=== PATIENT | female | born 1995 | race Caucasian/White ===

== ENCOUNTER 2021-08-02 10:00 | Outpatient (REF) | payer OTHER, SELFPAY ==
--- NOTE | 2021-08-02 10:26 | MHC.AU.P13 ---
Hearing Instrument Maintenance Date of Visit: 08/02/21 Right Ear: Mathematical Engineer: Phonak Model: AUDEO B50-312 Serial Number: [id number] Repair Warranty: Loss and Damage Warranty: USED Battery Size: 312 Forming Yardage Control Operator: 1xS Type of Dome: small closed Type of Wax Guard: Cerustop Dispensed By: [facility] Date of Fittin06/11/2017 Left Ear: Mathematical Engineer: Phonak Model: [place] InnovationsEO B50-312 Serial Number: [id number] Repair Warranty: Loss and Damage Warranty: USED Battery Size: 312 Forming Yardage Control Operator: 1xS Type of Dome: small closed Type of Wax Guard: Cerustop Dispensed By: [facility] Date of Fittin06/11/2017 Follow-Up Summary: Hearing aids cleaned, small closed domes and wax guards replaced - both amplifying clearly. Recommendations: Recommendations: Hearing instrument follow-up or maintenance as needed. Diagnosis Code(s): Primary Diagnosis: H90.3 Bilateral Sensorineural Hearing Loss Signature: Provider: SAHARA Cartwright-
== END 2021-08-02 10:01 | disposition home or self-care (01) ==
LOC: HO.HAP 10:00
PROVIDERS: Visit Provider Internal Medicine
DX: Z13.89 Encounter for screening for other disorder (principal)

== ENCOUNTER 2022-09-29 12:33 | Outpatient (REF) | payer OTHER, SELFPAY ==
--- NOTE | 2022-09-29 14:40 | MHC.AU.HA1 ---
Hearing Aid Evaluation Date of Visit: 09/29/22 Historical Information: Description of Hearing: Mild loss at 250 Hz, dropping to a moderately-severe sensorineural hearing loss at 500-8000 Hz bilaterally with 84 speech inderstanding for the right ear and 72% for the left. Current personal amplification information, if applicable: Binaural Phonak Audeo B 50-312 dispensed in May 2017. Summary: Patient current aids are not providing enough benefit despite reprogramming in past. As patient is visually impaired, she uses a tablet or cell phone to receive auditory information frequently throughout her day so bluetooth capability will be benfecial. She will also require custom earmolds as the domes do not fit properly. New binaural hearing aids are recommended with earmolds to better facilitate communication. Medical clearance from ENT in chart. Hearing Aid Prescription: Based on the individual?s shared listening needs, communication environments, dexterity, desire for connectivity, and personal preferences, the following prescription for amplification has been made: Right ear: Make, Model, Color: Phonak Audeo P 70-13T [place] Brown Battery Size: 13 Offal Trimmer/Slim Tube: 1 P Type of Earmold/Dome/CShell/SlimTip: Phonak Canal Lock C-Shell Left ear:Left ear prescription to be same as Right Hearing Aid above: Make, Model, Color: Phonak Audeo P 70-13T [place] Brown Battery Size: 13 Offal Trimmer/Slim Tube: 1 P Type of Earmold/Dome/CShell/SlimTip: Phonak Canal Lock C-Shell Plan of Care: Patient wishes to purchase hearing aids as prescribed Action Taken/Action Needed: Earmold Impressions Taken, Hearing Instrument Fitting to be scheduled when materials arrive Primary Diagnosis: H90.3 Bilateral Sensorineural Hearing Loss Signature:Provider: Catina Le, [facility]
== END 2022-09-29 12:34 | disposition home or self-care (01) ==
LOC: HO.HAP 12:33
PROVIDERS: Visit Provider Otolaryngology
DX: Z46.1 Encounter for fitting and adjustment of hearing aid (principal); H90.3 Sensorineural hearing loss, bilateral
CPT/HCPCS: 92591; V5275

== ENCOUNTER 2022-10-20 09:39 | Outpatient (REF) | payer OTHER, SELFPAY ==
--- NOTE | 2022-10-20 10:50 | MHC.AU.NMH ---
Hearing Aid Delivery Receipt: Third Alliance Party Payor [facility] type [facility] Other: Date of Fitting: End of Adjustment Period: 30 days from date of fitting Social Work Assistant: Right Ear: Left Ear: Make, Model, Serial Number and Color: Phonak Audeo P 70-13T Britany Richardson Serial #[id number] Make, Model, Serial Number and Color: Phonak Audeo P 70-13T Britany Richardson Serial #[id number] Crib Tender/Slim Tube: 1 P Crib Tender/Slim Tube: 1 P Earmold/Dome/CShell/SlimTip: Phonak Canal Lock C-Shell Earmold/Dome/CShell/SlimTip: Phonak Canal Lock C-Shell Type of Wax Guard: Cerustop Type of Wax Guard: Cerustop Battery Size: 13 Battery Size: 13 Boom Stick Worker Repair Warranty: 01/07/2026 Boom Stick Worker Repair Warranty: 01/07/2026 Boom Stick Worker Loss and Damage Warranty: USED Boom Stick Worker Loss and Damage Warranty: [facility] Service Agreement ends one year from date of fitting on? [facility] Service Agreement ends one year from date of fitting on Accessories/Assistive Technology: Following the expiration of [facility]s service agreement, charges for items and services listed above are billed at the usual and customary rate. *If coverage by third libertarian payor exists, medically necessary modifications, repairs, etc. will be billed to said third libertarian payor. If there is no third libertarian payor eligibility beyond the service agreement or ear muff assembler warranty periods, items will be billed per usual and customary rates and payment is expected at the time of service. Hearing aids that are lost or damaged beyond repair cannot be returned for credit, and the airframe technician is liable for the full purchase sampson. My signature below acknowledges that I have read and understand this hearing aid contract and have received the goods and services out lined above. ?Date? Home Address: ? PATIENT STICKER ? This hearing aid will not restore normal hearing nor will it prevent further hearing loss. The sale of a hearing aid is restricted to those individuals who have obtained a medical evaluation from a licensed physician or government services professional. A fully informed adult whose yazidi or personal beliefs preclude consultation with a physician may waive the requirement of a medical evaluation. The exercise of such a waiver is not in your best health interest and its use is strongly discouraged. It is also required that a person under the age of eighteen years obtain an evaluation by an collections attorney in addition to the medical evaluation before a hearing aid can be sold to such person. David Yanez,Title XV,Chapter 93:74
--- NOTE | 2022-10-20 10:57 | MHC.AU.NMH ---
Hearing Aid Delivery Receipt: Third Green Party Payor [facility] type [facility] Other: Date of Fittin10/20/2022 End of Adjustment Period: 30 days from date of fitting 11/17/2022 Stuntman: [employer] #[id number] Right Ear: Left Ear: Make, Model, Serial Number and Color: Phonak Audeo P 70-13T [place] Brown Serial #[id number] Make, Model, Serial Number and Color: Phonak Audeo P 70-13T [place] Brown Serial #[id number] Die Storage Worker/Slim Tube: 1 P Die Storage Worker/Slim Tube: 1 P Earmold/Dome/CShell/SlimTip: Phonak Canal Lock C-Shell #[id number] Warranty 01/06/2023 Earmold/Dome/CShell/SlimTip: Phonak Canal Lock C-Shell #[id number] Warranty 01/06/2023 Type of Wax Guard: Cerustop Type of Wax Guard: Cerustop Battery Size: 13 Battery Size: 13 Classification And Treatment Director Repair Warranty: 01/07/2026 Classification And Treatment Director Repair Warranty: 01/07/2026 Classification And Treatment Director Loss and Damage Warranty: 01/07/2026 Classification And Treatment Director Loss and Damage Warranty: 01/07/2026 [facility] Service Agreement ends one year from date of fitting on? 10/20/2023 [facility] Service Agreement ends one year from date of fitting on 10/20/2023 Accessories/Assistive Technology: Following the expiration of [facility]s service agreement, charges for items and services listed above are billed at the usual and customary rate. *If coverage by third democrat payor exists, medically necessary modifications, repairs, etc. will be billed to said third democrat payor. If there is no third democrat payor eligibility beyond the service agreement or steersman warranty periods, items will be billed per usual and customary rates and payment is expected at the time of service. Hearing aids that are lost or damaged beyond repair cannot be returned for credit, and the badger distiller operator is liable for the full purchase sampson. My signature below acknowledges that I have read and understand this hearing aid contract and have received the goods and services out lined above. ?Date? Home Address: ?[address] [address]? PATIENT STICKER ? This hearing aid will not restore normal hearing nor will it prevent further hearing loss. The sale of a hearing aid is restricted to those individuals who have obtained a medical evaluation from a licensed physician or wharf tally clerk. A fully informed adult whose spiritism or personal beliefs preclude consultation with a physician may waive the requirement of a medical evaluation. The exercise of such a waiver is not in your best health interest and its use is strongly discouraged. It is also required that a person under the age of eighteen years obtain an evaluation by an stapler hand in addition to the medical evaluation before a hearing aid can be sold to such person. David Yanez,Title XV,Chapter 93:74
== END 2022-10-20 09:40 | disposition home or self-care (01) ==
LOC: HO.HAP 09:39
PROVIDERS: Visit Provider Internal Medicine
DX: Z46.1 Encounter for fitting and adjustment of hearing aid (principal); H90.3 Sensorineural hearing loss, bilateral
CPT/HCPCS: V5011; V5020; V5160; V5261; V5264; V5266

== ENCOUNTER 2022-11-27 14:48 | Outpatient (REF) | payer OTHER, SELFPAY | END 2022-11-27 14:49 | disposition home or self-care (01) | LOC: HO.HAP 14:48 | PROVIDERS: Visit Provider Internal Medicine | DX: Z46.1 Encounter for fitting and adjustment of hearing aid (principal); H90.3 Sensorineural hearing loss, bilateral | CPT/HCPCS: V5266 ==

== ENCOUNTER 2022-12-27 13:29 | Outpatient (REF) | payer OTHER, SELFPAY | END 2022-12-27 13:30 | disposition home or self-care (01) | LOC: HO.HAP 13:29 | PROVIDERS: Visit Provider Internal Medicine | DX: Z46.1 Encounter for fitting and adjustment of hearing aid (principal); H90.3 Sensorineural hearing loss, bilateral | CPT/HCPCS: V5266 ==

== ENCOUNTER 2023-03-02 13:31 | Outpatient (REF) | payer OTHER, SELFPAY | END 2023-03-02 13:32 | disposition home or self-care (01) | LOC: HO.HAP 13:31 | PROVIDERS: Visit Provider Internal Medicine | DX: Z46.1 Encounter for fitting and adjustment of hearing aid (principal); H90.3 Sensorineural hearing loss, bilateral | CPT/HCPCS: V5266 ==

== ENCOUNTER 2023-04-04 15:51 | Outpatient (REF) | payer OTHER, SELFPAY | END 2023-04-04 15:52 | disposition home or self-care (01) | LOC: HO.HAP 15:51 | PROVIDERS: Visit Provider Internal Medicine | DX: Z46.1 Encounter for fitting and adjustment of hearing aid (principal); H90.3 Sensorineural hearing loss, bilateral | CPT/HCPCS: V5266 ==

== ENCOUNTER 2023-06-01 16:01 | Outpatient (REF) | payer OTHER, SELFPAY | END 2023-06-01 16:02 | disposition home or self-care (01) | LOC: HO.HAP 16:01 | PROVIDERS: Visit Provider Internal Medicine | DX: Z46.1 Encounter for fitting and adjustment of hearing aid (principal); H90.3 Sensorineural hearing loss, bilateral | CPT/HCPCS: V5266 ==

== ENCOUNTER 2023-07-13 12:48 | Outpatient (REF) | payer OTHER, SELFPAY | END 2023-07-13 12:49 | disposition home or self-care (01) | LOC: HO.HAP 12:48 | PROVIDERS: Visit Provider Internal Medicine | DX: Z46.1 Encounter for fitting and adjustment of hearing aid (principal); H90.3 Sensorineural hearing loss, bilateral | CPT/HCPCS: V5266 ==

== ENCOUNTER 2023-08-16 15:16 | Outpatient (REF) | payer OTHER, SELFPAY | END 2023-08-16 15:17 | disposition home or self-care (01) | LOC: HO.HAP 15:16 | PROVIDERS: Visit Provider Internal Medicine | DX: Z46.1 Encounter for fitting and adjustment of hearing aid (principal); H90.3 Sensorineural hearing loss, bilateral | CPT/HCPCS: V5266 ==

== ENCOUNTER 2023-10-10 15:47 | Outpatient (REF) | payer OTHER, SELFPAY | END 2023-10-10 15:48 | disposition home or self-care (01) | LOC: HO.HAP 15:47 | PROVIDERS: Visit Provider Internal Medicine | DX: Z46.1 Encounter for fitting and adjustment of hearing aid (principal); H90.3 Sensorineural hearing loss, bilateral | CPT/HCPCS: V5266 ==

== ENCOUNTER 2023-10-11 10:01 | Outpatient (REF) | payer OTHER, SELFPAY ==
--- NOTE | 2023-10-11 10:47 | MHC.AU.HA3 ---
Hearing Instrument Follow-Up- Binaural Date of Visit: 10/11/23 Right Ear: Make, Model, Color, Serial Number: Phonak Bessieeo P 70-13T Britany Richardson Serial #[id number] Mussel Opener Repair Warranty: 01/07/2026 Mussel Opener Loss and Damage Warranty: 01/07/2026 [employer] [facility] [employer] [facility] Service Plan: 10/20/2023 Battery Size: 13 Sap Project Manager/Slim Tube: 1 P Earmold/Dome/CShell/SlimTip:Phonak Canal Lock C-Shell #[id number] Remake warranty 01/06/2023 Type of Wax Guard: Cerustop Dispensed By: [facility] Date of Fittin06/11/2017 Left Ear: Make, Model, Color, Serial Number: Phonak Bessieeo P 70-13T Britany Richardson Serial #[id number] Mussel Opener Repair Warranty: 01/07/2026 Mussel Opener Loss and Damage Warranty: 01/07/2026 [employer] Service Plan: 10/20/2023 Battery Size: 13 Sap Project Manager/Slim Tube: 1 P Earmold/Dome/CShell/SlimTip: Phonak Canal Lock C-Shell #[id number] Remake warranty 01/06/2023 Type of Wax Guard: Cerustop Dispensed By: [facility] Date of Fittin06/11/2017 Follow-Up Summary: Reports streaming cuts out at times. Cleaned and checked aids and molds. Listening check positive. Checked for firmware- it is UTD. Switched from adaptive to fixed bandwidth for bluetooth, this can be a more stable connection. Forgot and repaired with phone. Recommendations: Recommendations: Patient will call if problems persist. Recommendations (Other): Aids will have to go to [employer] for connection issues if problem persists. Diagnosis Code(s): Primary Diagnosis: H90.3 Bilateral Sensorineural Hearing Loss Signature: Provider: Catina Gallardo, [facility]
== END 2023-10-11 10:02 | disposition home or self-care (01) ==
LOC: HO.HAP 10:01
PROVIDERS: Visit Provider Internal Medicine
DX: Z13.89 Encounter for screening for other disorder (principal)

== ENCOUNTER 2023-11-28 15:16 | Outpatient (REF) | payer OTHER, SELFPAY | END 2023-11-28 15:17 | disposition home or self-care (01) | LOC: HO.HAP 15:16 | PROVIDERS: Visit Provider Internal Medicine | DX: Z46.1 Encounter for fitting and adjustment of hearing aid (principal); H90.3 Sensorineural hearing loss, bilateral | CPT/HCPCS: V5266 ==

== ENCOUNTER 2024-02-04 15:34 | Outpatient (REF) | payer OTHER, SELFPAY | END 2024-02-04 15:35 | disposition home or self-care (01) | LOC: HO.HAP 15:34 | PROVIDERS: Visit Provider Internal Medicine | DX: Z46.1 Encounter for fitting and adjustment of hearing aid (principal); H90.3 Sensorineural hearing loss, bilateral | CPT/HCPCS: V5266 ==

== ENCOUNTER 2024-07-02 13:49 | Outpatient (REF) | payer OTHER, SELFPAY | END 2024-07-02 13:50 | disposition home or self-care (01) | LOC: HO.HAP 13:49 | PROVIDERS: Visit Provider Internal Medicine | DX: Z46.1 Encounter for fitting and adjustment of hearing aid (principal); H90.3 Sensorineural hearing loss, bilateral | CPT/HCPCS: V5266 ==

== ENCOUNTER 2024-08-18 15:24 | Outpatient (REF) | payer OTHER, SELFPAY | END 2024-08-18 15:25 | disposition home or self-care (01) | LOC: HO.HAP 15:24 | PROVIDERS: Visit Provider Internal Medicine | DX: Z46.1 Encounter for fitting and adjustment of hearing aid (principal); H90.3 Sensorineural hearing loss, bilateral | CPT/HCPCS: V5266 ==

== ENCOUNTER 2024-10-28 14:32 | Outpatient (REF) | payer OTHER, SELFPAY ==
--- OUTSIDE RECORDS SUMMARY | 2024-10-28 18:22 | XMS_ITS | Clinical Summary ---
Author Organization [facility] Address [address] [place] [address] [address] [place] [address] Care Team Providers Care Rental Car Ferry Driver Name Role Phone Unavailable Primary Care Provider Unavailabl e Allergies Active Allergy Reactions Criticality Noted Date Comments Bee Venom Unknown 03/26/2024 [place] Extract Hives 10/17/2019 Sulfamethoxazole Hives 10/17/2019 Medications Ventolin HFA 108 (90 Base) MCG/ACT inhaler INHALE 2 PUFFS INTO THE LUNGS EVERY 4 HOURS NEEDED FOR COUGH OR WHEEZING. 3 Active EPINEPHrine (Epipen) 0.3 MG/0.3ML injection syringe INJECT 0.3 MG INTO THE MUSCLE NEEDED FOR ANAPHYLACTIC REACTION 3 Active mirtazapine (Remeron) 15 MG tablet Take 15 mg by mouth at bedtime. 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 Pain, dental 03/26/2024 Social History Tobacco Use Types Packs/Day Years Used Date Smoking Tobacco: Never Smokeless Tobacco: Never Tobacco Cessation:Counseling Given: Not Answered Alcohol Use Standard Drinks/Week Comments Never 0 (1 standard drink = 0.6 oz pur e alcohol) Comments Unknown Sex and Gender Information Value Date Recorded Sex Assigned at Female 06/26/2022 10:15 AM EDT Legal Sex Female 10:15 AM EDT Gender Identity Female 06/26/2022 10:15 AM EDT Sexual Orientation Straight 06/26/2022 10 :15 AM EDT Last Filed Vital Signs Vital Sign Reading Time Taken Comments Blood Pressure 118/82 05/30/2024 1:24 PM EDT Pulse 68 05/30/2024 1:24 PM EDT Temperature - - Respiratory Rate - - Oxygen Saturation - - Inhaled Oxygen Concentration - - Weight - - Height - - Body Mass Index - - Plan of Treatment Upcoming Encounters Date Type Department Care Team (Late st Contact Info) Description 11/24/2024 3:00 PM EDT Office Visit [facility]ULT [facility] [address] [place] [address] Tosha Pulido Health Maintenance Due Date Last Done Comments Depression Screening 1993 HIV Screening 1993 SDOH Screening 1993 Alcohol/Substance Use Screening 2005 Family Planning (PISQ) 2008 Hepatitis C Screening 12/08/2011 Pap Smear 2014 Pneumococcal Vaccine: Pediatrics (0 to 5 Years) and At-Risk Patients (6 to 49) Years) (2 of 2 - PCV) 04/15/2016 04/15/2015 Cervical Cancer Screening 12/08/2023 HPV/Cotest 12/08/2023 COVID-19 Vaccine ( season) 2024 01/28/2021, 12/31/2020 Influenza Vaccine (#1) 2024 9, 08/29/2013, 05/22/2008, Additional history exists Dental Oral Exam 08/09/2024 02/07/2024, 11/05/2019 Dental Prophylaxis 08/09/2024 02/07/2024 Dental X-Ray: Bitewings 03/27/2025 03/26/2024, 02/06 Tobacco Screening 05/30/2025 05/30/2024 Dental X-Ray: Full Mouth 03/27/2027 024, 02/07/2024, 11/05/2019 DTaP/Tdap/Td Vaccines (8 - Td or Tdap) 10/22/2028 10/22/2018, 02/05/2007, 04/05/1999, Additional history exists Zoster Vaccines (1 of 2) 12/08/2043 RSV Patients and Patients Aged 60 years or older (1 - 1-dose 75+ series) 2068 HIB Vaccines Completed 05/28/1995, 09/1994, 05/23/1994, Additional history exists Hepatitis B Vaccines Completed 04/05/1999, 06/17/1996, 12/24/1995 IPV Vaccines Completed 04/05/1999, 09/1994, 05/28/1995, Additional history exists HPV Vaccines Completed 03/15/2009, 10/25, 09/10/2008 Meningococcal Vaccine Completed 11/12/2012, 008 Hepatitis A Vaccines Aged Out No long er eligible based on patient's age to complete this topic RSV under 20 months Aged Out No longe r eligible based on patient's age to complete this topic Rotavirus Vaccines Aged Out No longer eligible based on patient's age to complete this topic Procedures Procedure Name Priority Date/Time Associated Diagnosis Comments INTRAORAL - COMPLETE SERIES OF RADIOGRAPHIC IMAGES Routine 03/26/2024 9:30 AM EDT PROPHYLAXIS - ADULT Routine 02/07/2024 1 :00 PM EDT Dental plaque PERIODIC ORAL EVALUATION - ESTABLISHED PATIENT Routine 02/07/2024 1:00 PM EDT Dental plaque Encounter for dental examination Oligodontia from Last 3 Months or Most Recently Relevant to Health Maintenance Insurance [facility] MEDICAID STAND ADULT DENTAL - [facility] MEDICAID DDS ADULT
--- OUTSIDE RECORDS SUMMARY | 2024-10-28 18:22 | XMS_ITS | Clinical Summary ---
Author Organization [facility] [address] [facility] [address] Address [address] [place] [address] Phone Care Team Providers Care Core Winder Machine Operator Name Role Phone Pamela Hendrix MD Primary Care Provider Allergies Active Allergy Reactions Criticality Noted Date Comments Sulfamethoxazole-Trimethoprim Hives High 2013 Medications albuterol HFA (PROAIR HFA ; PROVENTIL HFA ; VENTOLIN HFA) 90 mcg/actuation inhaler Inhale 2 puffs by mouth every 4 (four) hours if needed for wheezing (cough). 8.5 g 4 Active EPINEPHrine (EpiPen 2-Morgan) 0.3 mg/0.3 mL injection Inject 0.3 mg into the muscle as needed for Other (anaphylactic reaction). Fill with whichever brand is covered by insurance. 4 Active fluticasone propionate (FLONASE) 50 mcg/actuation nasal spray 2 Sprays by Nasal route daily. 8 Active LORazepam (ATIVAN) 0.5 mg tablet Take 0.5 mg by mouth every 6 hours as needed. Active mirtazapine (REMERON) 15 mg tablet Take 15 mg by mouth at bedtime. Active valACYclovir (VALTREX) 500 mg tablet Take 1 tablet (500 mg total) by mouth 2 (two) times a day for 5 days. 10 each 5 10/06/19 25 Active Problems Problem Noted Date Diagnosed Date Bilateral hearing loss 07/28/2024 Hyperlipidemia 07/28/2024 Exotropia of right eye 08/13/2014 Depression 08/29/2013 Learning difficulty 08/29/2013 Legally blind 08/29/2013 Mild intermittent asthma 08/29/2013 Retinal detachment 08/29/2013 Scoliosis 08/29/2013 Encounters Date Type Department Care Team Description 10/01/2024 9:00 AM EST Office Visit [facility] [place] [address] [place] [address] Glenis Walker NP Herpes simplex (Primary Dx) 10/01/2024 Telephone Adult Medicine - [place] [address] [place] [address] Pamela Hendrix MD Mouth Lesions 09/30/2024 Nurse Triage Adult Medicine - [place] [address] [place] [address] Pamela Hendrix MD Mouth Lesions from Last 3 Months Immunizations Name Administration Dates Next Due DTaP (Infanrix) 6wks to less than 7yo ,05/28/1995,11/13/1994,05/23,02/06/1994 [id number] (Pentacel) 2mo to less than 5yo 05/28/1995,05/23/1994,02/06/1994 HPV, Quadrivalent 03/15/2009,11/10/2008,09/10/19 09 Hepatitis B Pediatric (Enger ix B; Recombivax HB) to less than 20 yo 04/05/1999,06/17/1996,12/24/1995 Influenza Quadravalent, MDCK , 0.5ml, preservative free (Flucelvax) 6mo and older 10/22/2018 Influenza trivalent, with pr eservative (Fluzone; Afluria) 6mo and older 08/29/2013,05/22/2008 MMR, measles mumps and rubel la Live (Priorix; M-M-R II) 12mo and older 04/05/1999,05/28/1995 Meningococcal MCV4P 11/12/2012,05/22/2008 OPV 04/05/1999, 5,05/23/1994,02/06 Pneumococcal polysaccharide 23 valent (Pneumovax 23) 2yo and older 04/15/2015 Td Tetanus diptheria (Tdvax) 7yo and older 10/22/2018 Tdap Tetanus diptheria acell ular pertussis (Boostrix; Adacel) 7yo and older 02/05/2007 Varicella live (Varivax) 12m o and older 02/12/2007 Surgical History Surgery Date Site/Laterality Comments OTHER SURGICAL HISTORY 05/2013 PROCEDURE: REPAIR DETACHED RETINA; COMMENT: right EYE SURGERY 04/2014 PROCEDURE: HISTORICAL EYE SURGERY Medical History Medical History Date Comments Asthma DX:Asthma Anxiety and depression DX:Anxiet y and depression Learning difficulty 08/29/2013 DX:Learning difficulty Scoliosis 08/29/2013 DX:Scoliosis Deliberate self-cutting 08/29/2013 DX:Delib erate self-cutting; COMMENT: Last May 2012 Legally blind 08/29/2013 DX:Legally blind Retinal detachment 08/29/2013 DX:Retinal de tachment Bilateral hearing loss DX:Bilate ral hearing loss Hyperlipidemia DX:Hyperlipidemi a Family History Medical History Relation Name Comments ADD / ADHD Brother No Known Problems Father Anemia Mother Other: breast cancer Paternal Grandmother older age Asthma Sister Colon cancer Neg Hx Ovarian cancer Neg Hx Pancreatic cancer Neg Hx Prostate cancer Neg Hx Uterine cancer Neg Hx Relation Name Status Comments Brother Alive Father Alive Maternal Grandfather heart a ttack Maternal Grandmother DM Mother Alive Paternal Grandfather unknown status Paternal Grandmother Sister Alive Social History Tobacco Use Types Packs/Day Years Used Date Smoking Tobacco: Never Smokeless Tobacco: Never Alcohol Use Standard Drinks/Week Comments Yes 0 (1 standard drink = 0.6 oz pur e alcohol) Comments Unknown Sex and Gender Information Value Date Recorded Sex Assigned at Not on file Legal Sex Female 11:51 PM EST Gender Identity Not on file Sexual Orientation Not on file Obstetrics History Last Filed Vital Signs Vital Sign Reading Time Taken Comments Blood Pressure 112/72 10/01/2024 9:11 AM EST Pulse 88 10/01/2024 9:11 AM EST Temperature 36.6 ??C (97.8 ??F) 10/01/2024 9:11 AM ES T Respiratory Rate - - Oxygen Saturation 98% 10/01/2024 9:11 AM EST Inhaled Oxygen Concentration - - Weight 85.7 kg (189 lb) 10/22/2023 2:56 PM EST Height 165.1 cm (5' 5 ) 10/22/2023 2:56 PM EST Body Mass Index 31.45 10/22/2023 2:56 PM EST Plan of Treatment Upcoming Encounters Date Type Department Care Team (Late st Contact Info) Description 11/05/2024 1:15 PM EDT Office Visit Obstetrics and Gynecology - [address] [phone] Tra Good CNM [address] [place] [address] 12/18/2024 3:30 PM EDT Office Visit Adult Medicine - [place] [address] [place] [phone] Pamela Hendrix MD [address] [place] [address] Health Maintenance Due Date Last Done Comments Pneumococcal Vaccine: Pediatrics (0 to 5 Years) and At-Risk Patients (6 to 64 Years) (2 of 2 - PCV) 04/15/2016 04/15/2015 Depression Screening 09/30/2023 Social Influencers of Health Screening 09/30/2023 COVID-19 Vaccine ( season) 2024 01/28/2021, 12/31/2020 Influenza Vaccine (#1) 2024 9, 08/29/2013, 05/22/2008 Cervical Cancer Screening: HPV 05/11/2028 05/11/2023 Cholesterol Screening (Lipid Panel) 10/22/2028 10/22/2023, 10/22/2023 DTaP,Tdap,and Td Vaccines (8 - Td or Tdap) 10/22/2028 10/22/2018, 02/05/2007, 04/05/1999, Additional history exists HIB Vaccines Completed 05/28/1995, 09/1994, 05/23/1994, Additional history exists Hepatitis B Vaccines Completed 04/05/1999, 06/17/1996, 12/24/1995 IPV Vaccines Completed 04/05/1999, 09/1994, 05/28/1995, Additional history exists MMR Vaccines Completed 04/05/1999, 05/28/1995 Varicella Vaccines Aged Out 02/12/2007 No longer eligible based on patient's age to complete this topic HPV Vaccines Completed 03/15/2009, 10/25, 09/10/2008 Meningococcal ACWY Vaccine Completed 11/12/2012, HIV Screening Completed 10/22/2023, 10/22/2023 Hepatitis C Screening Completed 10/22/2023 Hepatitis A Vaccines Aged Out No long er eligible based on patient's age to complete this topic Meningococcal B Vacine Aged Out No lo nger eligible based on patient's age to complete this topic RSV Immunization Patients Under 20 months Aged Out No longer eligible based on patient's age to complete this topic Procedures Procedure Name Priority Date/Time Associated Diagnosis Comments HEPATITIS C SCREENING Routine 10/22/2023 HIV SCREENING Routine 10/22/2023 LIPID PANEL Routine 10/22/2023 HPV Routine 05/11/2023 from Last 3 Months or Most Recently Relevant to Health Maintenance Results * HIV Screening (10/22/2023) [facility] HIV Screening Abstracted [facility] Provider HEALTH MAINTENANCE Final Result * Hepatitis C Screening (10/22/2023) [facility] Hepatitis C Screening Abstracted [facility] Provider HEALTH MAINTENANCE Final Result * (ABNORMAL) Lipid panel (10/22/2023) [facility] LDL/HDL Ratio 5(A) 0 - 4 Triglycerides 163(A) 0 - 150 mg/dL Cholesterol 205(A) 0 - 200 mg/dL HDL 41 >=40 mg/dL LDL Cholesterol 132(A) 0 - 100 mg/dL Blood Venous blood specimen / Unknown Result [facility] Provider LAB BLOOD ORDERABLES Page l Result * Cervical Cancer Screening: HPV (05/11/2023) [facility] Cervical Cancer Screening: HPV No Interpretation , Abstracted [facility] Provider HEALTH MAINTENANCE Final Result from Last 3 Months or Most Recently Relevant to Health Maintenance Insurance [facility] [place] [address] Care Teams Core Winder Machine Operator Relationship Specialty Start Date End Date Pamela Hendrix MD [address] [place] [address] [phone] PCP - General 06/01/23
--- OUTSIDE RECORDS SUMMARY | 2024-10-28 18:22 | XMS_ITS | Encounter Summary ---
Author Organization [facility] Address [address] [place] [address] Care Team Providers Care Elevator Supervisor Name Role Phone Pamela Hendrix MD Primary Care Provider Reason for Visit * Reason Comments Oral Pain Encounter Details Date Type Department Care Team ([facility] st Contact Info) Description 10/01/2024 9:00 AM EST Office Visit Walk-In Clinic - [place] [id number] [place] [phone] Glenis Walker NP [address] [place] [address] Herpes simplex (Primary Dx) Social History Tobacco Use Types Packs/Day Years Used Date Smoking Tobacco: Never Smokeless Tobacco: Never Alcohol Use Standard Drinks/Week Comments Yes 0 (1 standard drink = 0.6 oz pur e alcohol) Comments Unknown Sex and Gender Information Value Date Recorded Sex Assigned at Not on file Legal Sex Female 11:51 PM EST Gender Identity Not on file Sexual Orientation Not on file documented as of this encounter Last Filed Vital Signs Vital Sign Reading Time Taken Comments Blood Pressure 112/72 10/01/2024 9:11 AM EST Pulse 88 10/01/2024 9:11 AM EST Temperature 36.6 ??C (97.8 ??F) 10/01/2024 9:11 AM ES T Respiratory Rate - - Oxygen Saturation 98% 10/01/2024 9:11 AM EST Inhaled Oxygen Concentration - - Weight - - Height - - Body Mass Index - - documented in this encounter Ordered Prescriptions Prescription Sig Dispense Quantity Refills Last Filled Start Date End Date valACYclovir (VALTREX) 500 mg tablet Take 1 tablet (500 mg total) by mouth 2 (two) times a day for 5 days. 10 each 10/01/2024 10/06/2024 documented in this encounter Progress Notes * Glenis Walker NP - 10/01/2024 9:00 AM EST CHIEF COMPLAINT: Oral Pain HPI: Chacho Proctor is a 28 y.o. old female with recent upper respiratory infection signs and symptoms presents today with oral lesions ROS: Remainder of the 12 point review of symptoms unremarkable except for those idenitified in the HPI. PAST MEDICAL HISTORY: Patient Active Problem List Diagnosis Date Noted Bilateral hearing loss 07/28/2024 Hyperlipidemia 07/28/2024 Exotropia of right eye 08/13/2014 Depression 08/29/2013 Learning difficulty 08/29/2013 Legally blind 08/29/2013 Mild intermittent asthma 08/29/2013 Retinal detachment 08/29/2013 Scoliosis 08/29/2013 Past Surgical History: Procedure Laterality Date EYE SURGERY 04/2014 PROCEDURE: HISTORICAL EYE SURGERY OTHER SURGICAL HISTORY 05/2013 PROCEDURE: REPAIR DETACHED RETINA; COMMENT: right SOCIAL HISTORY: Social History Tobacco Use Smoking status: Never Smokeless tobacco: Never Substance Use Topics Alcohol use: Yes FAMILY HISTORY: Family History Problem Relation Name Age of Onset Anemia Mother No Known Problems Father Asthma Sister ADD / ADHD Brother Other (Other: breast cancer) Paternal Grandmother older age Colon cancer Neg Hx Pancreatic cancer Neg Hx Ovarian cancer Neg Hx Uterine cancer Neg Hx Prostate cancer Neg Hx Family Status Relation Name Status Mother Alive Father Alive Sister Alive Brother Alive PGM Neg Hx (Not Specified) MGM DM MGF heart attack PGF (Not Specified) unknown status No partnership data on file MEDICATIONS DISCONTINUED/REORDERED: There are no discontinued medications. ACTIVE MEDICATIONS: No outpatient medications have been marked as taking for the 10/01/24 encounter (Office Visit) with Glenis Walker NP. ALLERGIES: Allergies Allergen Reactions Sulfamethoxazole-Trimethoprim Hives PHYSICAL EXAM: Vitals: 10/01/24 0911 BP: 112/72 Pulse: 88 Temp: 36.6 ??C (97.8 ??F) TempSrc: Oral SpO2: 98% CONSTITUTIONAL: alert, calm, cooperative, in no acute distress HEAD: normocephalic, atraumatic EYES: pupils equal, round, reactive to direct and consensual light, accommodation reflex present, extraocular movement intact (EOMI), sclera non-icteric EARS: auditory canal clear, tympanic membrane intact and clear with anterior light reflex, no air-fluid levels bilaterally NOSE: septum intact, no lesions, no discharge ORAL CAVITY: mucosa moist, gums normal, palate normal, tongue midline several red herpetic sores lower buccal mucosa THROAT: no erythema, no exudate, pharynx normal, tonsils normal, uvula midline NECK/THYROID: neck range of motion grossly intact LYMPH: no cervical or supraclavicular lymphadenopathy SKIN: warm and dry HEART: S1, S2 normal, regular rate and rhythm, no murmurs, rubs, gallops LUNGS: clear to auscultation bilaterally, no wheezes, rales, rhonchi PSYCH: mood/affect full range, speech clear, good eye contact, cooperative with exam LABS/IMAGING: IMPRESSION: Herpes simplex PLAN: The patient's PMH, problem list and medications were reviewed in reference to the above diagnosis/diagnoses. Valtrex sent to pharmacy Salt water gargles Maintain adequate hydration Advised to follow up with PCP if symptoms do not improve. Advised to follow up with UC or PCP immediately for new or worsening symptoms. Educated on red flags symptoms. Advised to go to the ER or call 911 for these symptoms. Patient understands the plan. Patient verbalizes agreement with the plan. No orders of the defined types were placed in this encounter. Glenis Walker NP on 10/01/2024 at 9:13 AM EST Today's documentation was made using voice recognition software. This note may contain grammatical errors secondary to this software. documented in this encounter Plan of Treatment Upcoming Encounters Date Type Department Care Team (Late st Contact Info) Description 11/05/2024 1:15 PM EDT Office Visit Obstetrics and Gynecology - [address] [phone] Tra Good CNM [address] [place] [address] 12/18/2024 3:30 PM EDT Office Visit Adult Medicine - [place] [address] [place] [phone] Pamela Hendrix MD [address] [place] [address] documented as of this encounter Visit Diagnoses Diagnosis Herpes simplex- Primary Herpes simplex without mention of complication documented in this encounter Care Teams Elevator Supervisor Relationship Specialty Start Date End Date Pamela Hendrix MD [address] [place] [address] PCP - General 06/01/23 documented as of this encounter
--- OUTSIDE RECORDS SUMMARY | 2024-10-28 18:22 | XMS_ITS | Encounter Summary ---
Author Organization [employer] [facility] Address [address] [place] [address] Care Team Providers Care Change Number Operator Name Role Phone Pamela Hendrix MD Primary Care Provider Reason for Visit * Reason Onset Date Comments Mouth Lesions 10/01/2024 Encounter Details Date Type Department Care Team ([facility] st Contact Info) Description 10/01/2024 Telephone Adult Medicine - [address] [phone] Pamela Hendrix MD [address] [place] [address] Mouth Lesions Social History Tobacco Use Types Packs/Day Years [...] on file documented as of this encounter Progress Notes * Ian Cheung RN - 10/01/2024 10:10 AM EST Discussed dx and treatment that was prescribed by mehreen bahena today * Jorge Hoyos - 10/01/2024 10:01 AM EST Patient call requires triage: Symptoms patient is presenting: pt had an appt with our Urgent Care today, states no tests we're ordered and nothing was told about what patient has on face, would like a call back from a nurse How long has patient had these symptoms?: For ALL patients calling to schedule any appointment (routine, sick visit, follow up, consult, etc.) in the outpatient setting please ask the following questions: Do you have fever of higher than 101, sore throat with difficulty swallowing or severe shortness ofbreath? no If YES to any of these above symptoms, send a message to triage and do not book. Red dot. If no, an audio or video visit should be booked. Have you had close contact with someone with Coronavirus in the last 14 days? no Have you traveled abroad? no Have you traveled recently to another state outside of [place], [place], [place], [place], [place], [place], [place]? no o If yes, did you quarantine for 14 days or have a negative covid test? no If yes to any of the above, patient is not to be scheduled in office until after 14 day quarantine or negative covid test. If pain or injury related was it due to an accident at work or from a motor vehicle accident? If yes, date of accident/Injury: No If yes, gather 3rd democrat insurance information [employer] Party Information: PCP: Pamela Hendrix MD Payor: [employer] PLAN / Plan: [employer] MEDICAID / Product Type: *No Product type* / documented in this encounter Plan of Treatment Upcoming Encounters Date Type Department Care Team (Late st Contact Info) Description 11/05/2024 1:15 PM EDT Office Visit Obstetrics and Gynecology - [place] [address] [place] [address] Tra Good CNM [address] [place], [place] 12/18/2024 3:30 PM EDT Office Visit Adult Medicine - [place] [address] [place] [phone] Pamela Hendrix MD [address] [place], [place] documented as of this encounter Visit Diagnoses Not on filedocumented in this encounter Care Teams Change Number Operator Relationship Specialty Start Date End Date Pamela Hendrix MD [address] [place] [phone] PCP - General 06/01/23 documented as of this encounter
--- OUTSIDE RECORDS SUMMARY | 2024-10-28 18:22 | XMS_ITS | Encounter Summary ---
Author Organization [facility] Address [address] [place] [phone] Phone Care Team Providers Care Slot Key Person Name Role Phone Unavailable Primary Care Provider Unavailabl e Encounter Details Date Type Department Care Team (Late st Contact Info) Description 01/13/2018 Conversion Encounter [facility] [address] [address] Social History Tobacco Use Types Packs/Day Years Used Date Smoking Tobacco: Never Assessed Comments Unknown Sex and Gender Information Value Date Recorded Sex Assigned at Not on file Legal Sex Female 6:20 PM EDT Gender Identity Not on file Sexual Orientation Not on file documented as of this encounter Plan of Treatment Not on file documented as of this encounter Visit Diagnoses Not on filedocumented in this encounter
--- OUTSIDE RECORDS SUMMARY | 2024-10-28 18:22 | XMS_ITS | Clinical Summary ---
Author Organization [facility] Address [address] [place] [address] Phone Care Team Providers Care Post Secondary Professional Name Role Phone Unavailable Primary Care Provider Unavailabl e Immunizations Immunization Administration Dates Next Due DTaP 04/05/1999, 5,11/13/1994,05/23,02/06/1994 HPV, Quadrivalent 03/15/2009,11/10/2008,09/10/19 09 Hep B, ped/adol 04/05/1999,06/17/1996,12/24/1995 Hib (PRP-T) 05/28/1995,05/23/1994,02/06/1994 Influenza, injectable, quadr ivalent, preservative free 05/22/2008 MMR 04/05/1999,05/28/1995 Meningococcal Conj (Menactra) MCV4P 11/12/2012,0 05/22/2008 OPV 04/05/1999, 5,05/23/1994,02/06 Tdap 02/05/2007 Varicella 02/13/2007 Family History Relation Name Status Comments Father Alive healthy age: 45 Father's Brother Alive healthy Father's Sister Alive healthy Maternal Grandfather [place] at 6 3 yrs Maternal Grandmother DM and kidney ...dialysis/ 62 yr Mother Alive healthy/ hypert ension age: 40 Other Alive Siblings: healt hy Paternal Grandfather unknown Paternal Grandmother cancer( lung ) ?49 yr Social History Tobacco Use Types Packs/Day Years Used Date Smoking Tobacco: Never Assessed Comments Unknown Sex and Gender Information Value Date Recorded Sex Assigned at Not on file Legal Sex Female 6:20 PM EDT Gender Identity Not on file Sexual Orientation Not on file Last Filed Vital Signs Vital Sign Reading Time Taken Comments Blood Pressure 120/66 11/12/2012 12:00 AM EDT Pulse - - Temperature 36.8 ??C (98.2 ??F) 01/06/2010 1 2:00 AM EDT Respiratory Rate - - Oxygen Saturation - - Inhaled Oxygen Concentration - - Weight 47.5 kg (104 lb 12.8 oz) 013 12:00 AM EDT Height 167 cm (5' 5.75 ) 11/12/2012 12: 00 AM EDT Body Mass Index 17.04 11/12/2012 12:00 AM EDT Plan of Treatment Health Maintenance Due Date Last Done Comments Varicella Vaccines (2 of 2 - 13+ 2-dose series) 03/13/2007 02/13/2007 DTaP,Tdap,and Td Vaccines (7 - Td or Tdap) 02/05/2017 02/05/2007, 04/05/1999, 05/28/1995, Additional history exists Influenza Vaccines (#1) 2024 05/22/2008 COVID-19 Vaccine ( season) 2024 HIB Vaccines Completed 05/28/1995, 04/28, 02/06/1994 Hepatitis B Vaccines Completed 04/05/1999, 06/17/1996, 12/24/1995 IPV Vaccines Completed 04/05/1999, 09/1994, 05/23/1994, Additional history exists MMR Vaccines Completed 04/05/1999, 05/28/1995 HPV Vaccines Completed 03/15/2009, 10/25, 09/10/2008 Meningococcal Vaccine Completed 11/12/2012, 008 Hepatitis A Vaccines Aged Out No long er eligible based on patient's age to complete this topic Men B Vaccine Aged Out No longer elig ible based on patient's age to complete this topic Pneumococcal Vaccine Aged Out No long er eligible based on patient's age to complete this topic
--- OUTSIDE RECORDS SUMMARY | 2024-10-28 18:22 | XMS_ITS | Encounter Summary ---
Author Organization [employer] Address [address] [place] [address] Care Team Providers Care Digital Strategy Manager Name Role Phone Pamela Hendrix MD Primary Care Provider Reason for Visit * Reason Onset Date Comments Mouth Lesions 09/30/2024 Encounter Details Date Type Department Care Team (Late st Contact Info) Description 09/30/2024 Nurse Triage Adult Medicine - [address] [phone] Pamela Hendrix MD [address] [place] [address] Mouth Lesions Social History Tobacco Use Types [...] as of this encounter Progress Notes * Alvina Patrick LPN - 09/30/2024 11:20 AM EST Patient reports that the lesions in her mouth that started yesterday, She states she only has them only in her mouth. They are not on her hands or feet. Patient reports no shortness of breath but didhave a fever. Appointment made at urgent care Reason for Disposition [1] Bloody crusts on lips or sores in mouth AND [2] rash anywhere else on body (back, chest, face, palms, soles) Gums are red, painful and have many ulcers Fever Answer Assessment - Initial Assessment Questions 1. LOCATION: Where is the ulcer located? Mouth 2. NUMBER: How many ulcers are there? unaware 3. SIZE: How large is the ulcer? Unsure 4. SEVERITY: Are they painful? If Yes, ask: How bad is it? (Scale 1-10; or mild, moderate, severe) - MILD - eating and drinking normally - MODERATE - decreased liquid intake - SEVERE - drinking very little Mild 5. ONSET: When did you first notice the ulcer? Yesterday 6. RECURRENT SYMPTOM: Have you had a mouth ulcer before? If Yes, ask: When was the last time? and What happened that time? No 7. CAUSE: What do you think is causing the mouth ulcer? Unaware 8. OTHER SYMPTOMS: Do you have any other symptoms? (e.g., fever) Fever 9. : Is there any chance you are ? When was your last menstrual period? No Protocols used: Mouth Ulcers-A-AH * Jorge Hoyos - 09/30/2024 11:11 AM EST Patient call requires triage: Symptoms patient is presenting: pt states she has a fever and now has mouth sores, asking for medicine to be prescribed How long has patient had these symptoms?: 1 day For ALL patients calling to schedule any [...] traveled recently to another state outside of [place], [place], [place], [place], [place], [place], [place]? no o If yes, did you quarantine [...] yes, gather 3rd democrat insurance information [employer] Party Information: not applicable PCP: Pamela Hendrix MD Payor: [facility] PLAN / Plan: [facility] MEDICAID / Product Type: *No Product type* / documented in this encounter Plan of Treatment Upcoming Encounters Date Type Department Care Team (Late st Contact Info) Description 11/05/2024 1:15 PM EDT Office Visit Obstetrics and Gynecology - [address] [phone] Tra Good CNM [address] [place] [address] 12/18/2024 3:30 PM EDT Office Visit Adult Medicine - [place] [address] [place] [phone] Pamela Hendrix MD [address] [place] [address] documented as of this encounter Visit Diagnoses Not on filedocumented in this encounter Care Teams Digital Strategy Manager Relationship Specialty Start Date End Date Pamela Hendrix MD [address] [place] [address] PCP - General 06/01/23 documented as of this encounter
== END 2024-10-28 14:33 | disposition home or self-care (01) ==
LOC: HO.HAP 14:32
PROVIDERS: Visit Provider Internal Medicine
DX: Z46.1 Encounter for fitting and adjustment of hearing aid (principal); H90.3 Sensorineural hearing loss, bilateral
CPT/HCPCS: V5266

== ENCOUNTER 2025-03-06 11:23 | Outpatient (REF) | payer OTHER, SELFPAY ==
--- OUTSIDE RECORDS SUMMARY | 2025-03-06 11:55 | XMS_ITS | Clinical Summary ---
Author Organization [facility] [address] [facility] [address] Address [address] [place] [address] Phone Care Team Providers Care Residential Pest Control Technician Name Role Phone Pamela Hendrix MD Primary Care Provider Allergies Active Allergy Reactions Criticality Noted Date Comments Bee Venom Protein (Honey Bee) Unknown 2023 [place] Extract Hives 10/17/2019 Sulfamethoxazole Hives 10/17/2019 Sulfamethoxazole-Trimethoprim Hives High 2013 Medications albuterol HFA [...] Sprays by Nasal route daily. 8 Active mirtazapine (REMERON) 15 mg tablet Take 1 tablet (15 mg total) by mouth. Active Active Problems Problem Noted Date Diagnosed Date Anxiety and depression 12/25/2024 Wears hearing aid in both ears 12/25/2024 Bilateral hearing loss 07/28/2024 Hyperlipidemia 07/28/2024 Exotropia of right eye 08/13/2014 Depression 08/29/2013 Learning difficulty 08/29/2013 Legally blind 08/29/2013 Mild intermittent asthma 08/29/2013 Retinal detachment 08/29/2013 Scoliosis 08/29/2013 Encounters Date Type Department Care Team Description 02/12/2025 Telephone Adult [address] [phone] Elizabeth Kim MA Request For Order(s) ([facility]) 12/29/2024 8:00 AM EDT - 12/29/2024 11:59 PM EDT Hospital Encounter Ultrasound - [address] [phone] Pain of upper abdomen Discharge Disposition: Home or Self Care 12/25/2024 2:00 PM EDT Office Visit Adult [address] [phone] Pamela Hendrix MD Routine medical exam (Primary Dx); Learning difficulty; Obesity (BMI 30-39.9); Anxiety and depression; Screening for cardiovascular condition; Wears hearing aid in both ears; Legally blind; Hx of angioedema; Pain of upper abdomen; Mandibular micrognathia; Mild intermittent asthma without complication; H/O bee sting allergy 12/16/2024 Telephone Adult [address] [phone] Anika Chris MA Forms/questionnaires (Physician summary form/) 12/16/2024 Telephone Adult [address] [phone] Pamela Hendrix MD Other (Paperwork) from Last 3 Months Immunizations Name Administration Dates Next Due DTaP (Infanrix) 6wks to less than 7yo ,05/28/1995,11/13/1994,05/23,02/06/1994 [id number] (Pentacel) 2mo to less than 5yo 05/28/1995,05/23/1994,02/06/1994 [...] Not Answered Alcohol Use Standard Drinks/Week Comments Yes 0 (1 standard drink = 0.6 oz pur e alcohol) Comments No Sex and Gender Information Value Date Recorded Sex Assigned at Not on file Legal Sex Female 11:51 PM EST Gender Identity Not on file Sexual Orientation Not on file Obstetrics History Last Filed Vital Signs Vital Sign Reading Time Taken Comments Blood Pressure 118/70 12/25/2024 1:50 PM EDT Pulse 91 12/25/2024 1:50 PM EDT Temperature 36.1 C (97 F) 12/25/2024 1:50 PM EDT Respiratory Rate 16 12/25/2024 1:50 PM EDT Oxygen Saturation 98% 10/01/2024 9:11 AM EST Inhaled Oxygen Concentration - - Weight 84.4 kg (186 lb) 12/25/2024 1:50 PM EDT Height 166 cm (5' 5.35 ) 12/25/2024 1:50 PM EDT Body Mass Index 30.62 12/25/2024 1:50 PM EDT Plan of Treatment Upcoming Encounters Date Type Department Care Team (Late st Contact Info) Description 06/29/2025 1:15 PM EST Office Visit Adult Medicine - [address] [phone] Obinna Blackman PA [address] [place] [id number] Health Maintenance Due Date Last Done Comments Pneumococcal Vaccine: Pediatrics (0 to 5 Years) and At-Risk Patients (6 to 49 Years) (2 of 2 - PCV) 04/15/2016 04/15/2015 Social Influencers of Health Screening 09/30/2023 COVID-19 Vaccine ( season) 2024 01/28/2021, 12/31/2020 Influenza Vaccine (#1) 2025 9, 08/29/2013, 05/22/2008 Depression Screening 12/25/2025 12/25/2024 DTaP,Tdap,and Td Vaccines (8 - Td or Tdap) 10/22/2028 10/22/2018, 02/05/2007, 04/05/1999, Additional history exists Cervical Cancer Screening: HPV 11/05/2029 11/05/2024, 05/11/2023 Cholesterol Screening (Lipid Panel) 12/25/2029 12/25/2024, 10/22/2023, 10/22/2023 HIB Vaccines Completed 05/28/1995, 09/1994, 05/23/1994, Additional [...] age to complete this topic Meningococcal B Vaccine Aged Out No l onger eligible based on patient's age to complete this topic RSV Immunization Patients Under 20 months Aged Out No longer eligible based on patient's age to complete this topic Procedures Procedure Name Priority Date/Time Associated Diagnosis Comments US ABDOMEN COMPLETE Routine 12/29/2024 8 :54 AM EDT Pain of upper abdomen CBC WITH AUTO DIFFERENTIAL Routine 12/25/2024 2:39 PM EDT Routine medical exam Obesity (BMI 30-39.9) Anxiety and depression Screening for cardiovascular condition ALLERGEN, WALNUT IGE Routine 12/25/2024 2:39 PM EDT Routine medical exam Learning difficulty Obesity (BMI 30-39.9) Anxiety and depression Screening for cardiovascular condition Wears hearing aid in both ears Legally blind Hx of angioedema Pain of upper abdomen Mandibular micrognathia Mild intermittent asthma without complication H/O bee sting allergy ALLERGEN,PISTACHIO IGE Routine 12/25/2024 2:39 PM EDT Routine medical exam Learning difficulty Obesity (BMI 30-39.9) Anxiety and depression Screening for cardiovascular condition Wears hearing aid in both ears Legally blind Hx of angioedema Pain of upper abdomen Mandibular micrognathia Mild intermittent asthma without complication H/O bee sting allergy ALLERGEN, PECAN IGE Routine 12/25/2024 2 :39 PM EDT Routine medical exam Learning difficulty Obesity (BMI 30-39.9) Anxiety and depression Screening for cardiovascular condition Wears hearing aid in both ears Legally blind Hx of angioedema Pain of upper abdomen Mandibular micrognathia Mild intermittent asthma without complication H/O bee sting allergy ALLERGEN, CASHEW IGE Routine 12/25/2024 2:39 PM EDT Routine medical exam Learning difficulty Obesity (BMI 30-39.9) Anxiety and depression Screening for cardiovascular condition Wears hearing aid in both ears Legally blind Hx of angioedema Pain of upper abdomen Mandibular micrognathia Mild intermittent asthma without complication H/O bee sting allergy ALLERGEN, ALMONDS IGE Routine 12/25/2024 2:39 PM EDT Routine medical exam Learning difficulty Obesity (BMI 30-39.9) Anxiety and depression Screening for cardiovascular condition Wears hearing aid in both ears Legally blind Hx of angioedema Pain of upper abdomen Mandibular micrognathia Mild intermittent asthma without complication H/O bee sting allergy ALLERGEN HAZELNUT/FILBERT IGE Routine 12/25/2024 2:39 PM EDT Routine medical exam Learning difficulty Obesity (BMI 30-39.9) Anxiety and depression Screening for cardiovascular condition Wears hearing aid in both ears Legally blind Hx of angioedema Pain of upper abdomen Mandibular micrognathia Mild intermittent asthma without complication H/O bee sting allergy ALLERGEN, PEANUT Routine 12/25/2024 2:39 PM EDT Routine medical exam Learning difficulty Obesity (BMI 30-39.9) Anxiety and depression Screening for cardiovascular condition Wears hearing aid in both ears Legally blind Hx of angioedema Pain of upper abdomen Mandibular micrognathia Mild intermittent asthma without complication H/O bee sting allergy ALLERGEN HORNET, YELLOW IGE Routine 12/25/2024 2:39 PM EDT Routine medical exam Learning difficulty Obesity (BMI 30-39.9) Anxiety and depression Screening for cardiovascular condition Wears hearing aid in both ears Legally blind Hx of angioedema Pain of upper abdomen Mandibular micrognathia Mild intermittent asthma without complication H/O bee sting allergy ALLERGEN WASP, PAPER IGE Routine 12/25/2024 2:39 PM EDT Routine medical exam Learning difficulty Obesity (BMI 30-39.9) Anxiety and depression Screening for cardiovascular condition Wears hearing aid in both ears Legally blind Hx of angioedema Pain of upper abdomen Mandibular micrognathia Mild intermittent asthma without complication H/O bee sting allergy ALLERGEN YELLOW JACKET IGE Routine 12/25/2024 2:39 PM EDT Routine medical exam Learning difficulty Obesity (BMI 30-39.9) Anxiety and depression Screening for cardiovascular condition Wears hearing aid in both ears Legally blind Hx of angioedema Pain of upper abdomen Mandibular micrognathia Mild intermittent asthma without complication H/O bee sting allergy ALLERGEN TREE, CHESTNUT IGE Routine 12/25/2024 2:39 PM EDT Routine medical exam Learning difficulty Obesity (BMI 30-39.9) Anxiety and depression Screening for cardiovascular condition Wears hearing aid in both ears Legally blind Hx of angioedema Pain of upper abdomen Mandibular micrognathia Mild intermittent asthma without complication H/O bee sting allergy ALLERGEN MACADAMIA NUT IGE Routine 12/25/2024 2:39 PM EDT Routine medical exam Learning difficulty Obesity (BMI 30-39.9) Anxiety and depression Screening for cardiovascular condition Wears hearing aid in both ears Legally blind Hx of angioedema Pain of upper abdomen Mandibular micrognathia Mild intermittent asthma without complication H/O bee sting allergy ALLERGEN SUNFLOWER SEED IGE Routine 12/25/2024 2:39 PM EDT Routine medical exam Learning difficulty Obesity (BMI 30-39.9) Anxiety and depression Screening for cardiovascular condition Wears hearing aid in both ears Legally blind Hx of angioedema Pain of upper abdomen Mandibular micrognathia Mild intermittent asthma without complication H/O bee sting allergy ALLERGEN, WHITE [place]AK IGE Routine 12/25/2024 2:39 PM EDT Routine medical exam Learning difficulty Obesity (BMI 30-39.9) Anxiety and depression Screening for cardiovascular condition Wears hearing aid in both ears Legally blind Hx of angioedema Pain of upper abdomen Mandibular micrognathia Mild intermittent asthma without complication H/O bee sting allergy ALLERGEN WHITE [place] Routine 12/25/2024 2 :39 PM EDT Routine medical exam Learning difficulty Obesity (BMI 30-39.9) Anxiety and depression Screening for cardiovascular condition Wears hearing aid in both ears Legally blind Hx of angioedema Pain of upper abdomen Mandibular micrognathia Mild intermittent asthma without complication H/O bee sting allergy ALLERGEN TREE, MAPLE LEAF SYCAMORE, SINGH PLANE IGE Routine 12/25/2024 2:39 PM EDT Routine medical exam Learning difficulty Obesity (BMI 30-39.9) Anxiety and depression Screening for cardiovascular condition Wears hearing aid in both ears Legally blind Hx of angioedema Pain of upper abdomen Mandibular micrognathia Mild intermittent asthma without complication H/O bee sting allergy ALLERGEN, WALNUT TREE IGE Routine 12/25/2024 2:39 PM EDT Routine medical exam Learning difficulty Obesity (BMI 30-39.9) Anxiety and depression Screening for cardiovascular condition Wears hearing aid in both ears Legally blind Hx of angioedema Pain of upper abdomen Mandibular micrognathia Mild intermittent asthma without complication H/O bee sting allergy ALLERGEN,PINE NUT IGE Routine 12/25/2024 2:39 PM EDT Routine medical exam Learning difficulty Obesity (BMI 30-39.9) Anxiety and depression Screening for cardiovascular condition Wears hearing aid in both ears Legally blind Hx of angioedema Pain of upper abdomen Mandibular micrognathia Mild intermittent asthma without complication H/O bee sting allergy CBC AND DIFFERENTIAL Routine 12/25/2024 2:39 PM EDT Routine medical exam Obesity (BMI 30-39.9) Anxiety and depression Screening for cardiovascular condition THYROID STIMULATING HORMONE WITH REFLEX TO FREE T4 AND FREE T3 Routine 12/25/2024 2:39 PM EDT Routine medical exam Obesity (BMI 30-39.9) Anxiety and depression Screening for cardiovascular condition LIPID PANEL WITH REFLEX TO DIRECT LDL Routine 12/25/2024 2:39 PM EDT Routine medical exam Obesity (BMI 30-39.9) Anxiety and depression Screening for cardiovascular condition COMPREHENSIVE METABOLIC PANEL Routine 12/25/2024 2:39 PM EDT Routine medical exam Obesity (BMI 30-39.9) Anxiety and depression Screening for cardiovascular condition HPV WITH REFLEX GENOTYPE Routine 11/05/2024 1:35 PM EDT Encounter for annual physical examination excluding gynecological examination in a patient older than 17 years HEPATITIS C SCREENING Routine 10/22/2023 HIV SCREENING Routine 10/22/2023 from Last 3 Months or Most Recently Relevant to Health Maintenance Results * US Abdomen Complete (12/29/2024 8:54 AM EDT) Anatomical Region Laterality Modality Body Radiographic Mulu ging 12/29/2024 9:23 AM EDT Impressions 12/29/2024 9:39 AM EDT Gallbladder polyp. Hepatic steatosis. -------- FINAL REPORT -------- Dictated By: Larissa Argueta Dictated Date: 12/29/2024 09:23 ET Assigned Physician: Larissa Argueta Reviewed and Electronically Signed By: Larissa Argueta Signed Date: 12/29/2024 09:39 ET Workstation ID: [id number] Transcribed By: Self Edit Transcribed Date: 12/29/2024 09:23 ET Narrative 12/29/2024 9:39 AM EDT ABDOMINAL ULTRASOUND History: Upper abdominal pain. Comparison: None. FINDINGS: There is a 0.4 x 0.2 x 0.3 cm gallbladder polyp. There is no evidence of cholelithiasis. The common bile duct is not dilated, measuring 2 mm. The gallbladder wall is not thickened. No pericholecystic fluid is seen. No ascites are seen. The pancreas is not well visualized. The liver measures 14.0 cm length and demonstrates mildly echogenic echotexture. No focal lesions are seen in the liver and there is no evidence of intrahepatic ductal dilation. Normal hepatopedal flow is seen in the main portal vein. No evidence of hydronephrosis, mass, or calculus was seen in either kidney. The right kidney measures 9.7 cm in greatest length. The left kidney measures 9.9 cm in length. The spleen measures 12.2 cm in length. The visualized abdominal aorta and IVC are unremarkable. Ultrasound evaluation of the area of pain indicated by the patient in the right lower quadrant was also performed. No ultrasound abnormality is identified in this area. Procedure Note Larissa Argueta MD - 12/29/2024 ABDOMINAL ULTRASOUND History: Upper abdominal pain. Comparison: None. FINDINGS: There is a 0.4 x 0.2 x 0.3 cm gallbladder polyp. There is noevidence of cholelithiasis. The common bile duct is not dilated, measuring2 mm. The gallbladder wall is not thickened. No pericholecystic fluid isseen. No ascites are seen. The pancreas is not well visualized. The liver measures 14.0 cm length and demonstrates mildly echogenicechotexture. No focal lesions are seen in the liver and there is noevidence of intrahepatic ductal dilation. Normal hepatopedal flow is seenin the main portal vein. No evidence of hydronephrosis, mass, or calculus was seen in eitherkidney. The right kidney measures 9.7 cm in greatest length. The leftkidney measures 9.9 cm in length. The spleen measures 12.2 cm in length. The visualized abdominal aorta and IVC are unremarkable. Ultrasound evaluation of the area of pain indicated by the patient in theright lower quadrant was also performed. No ultrasound abnormality is identified in this area. IMPRESSION: Gallbladder polyp. Hepatic steatosis. -------- FINAL REPORT -------- Dictated By: Larissa Argueta Dictated Date: 12/29/2024 09:23 ET Assigned Physician: Larissa Argueta Reviewed and Electronically Signed By: Larissa Argueta Signed Date: 12/29/2024 09:39 ET Workstation ID: [id number] Transcribed By: Self Edit Transcribed Date: 12/29/2024 09:23 ET Pamela Hendrix MD IMG US PROCEDURES Page l Result * Thyroid stimulating hormone with reflex to free t4 and free t3 (12/25/2024 2:39 PM EDT) Pathologist [facility] [place] TSH 2.36 0.40 - 4.00 mcIU/mL LAB CHEMISTRY METHOD 12/25/2024 8:04 PM EDT [facility] Blood Venous blood specimen / Unknown Venipuncture / Unknown 12/25/2024 2:39 PM EDT 12/25/2024 2:39 PM EDT Pamela Hendrix MD LAB BLOOD ORDERABLES F inal Result [facility] [address] [place] [address], [place] [phone] * (ABNORMAL) Lipid panel with reflex to direct LDL (12/25/2024 2:39 PM EDT) [facility] Cholesterol 228(H) 0 - 200 mg/dL LAB CHEMISTRY METHOD 12/25/2024 6:26 PM EDT [facility] Triglycerides 129 0 - 150 mg/dL LAB CHEMISTRY METHOD 12/25/2024 6:26 PM EDT [facility] HDL 43 >=40 mg/dL LAB CHEMISTRY METHOD 12/25/2024 6:26 PM EDT [facility] LDL Calculated 159(H) 0 - 100 mg/dL LAB CHEMISTRY METHOD 12/25/2024 6:26 PM EDT [facility] VLDL Cholesterol Trino 25.8 mg/dL LAB CHEMISTRY METHOD 12/25/2024 6:26 PM EDT [facility] Non HDL Chol. (LDL+VLDL) 185(H) <145 mg/dL LAB CHEMISTRY METHOD 12/25/2024 6:26 PM EDT [facility] Chol/HDL Ratio 5.3(H) 0.0 - 4.4 LAB CHEMISTRY METHOD 12/25/2024 6:26 PM EDT [facility] Blood Venous blood specimen / Unknown Venipuncture / Unknown 12/25/2024 2:39 PM EDT 12/25/2024 2:39 PM EDT Pamela Hendrix MD LAB BLOOD ORDERABLES F inal Result [facility] [address] [place] [address], [place] [phone] * [place] IgE (12/25/2024 2:39 PM EDT) Pathologist [facility] [place] Pistachio, IgE <0.10 <0.10 kU/L 12/30/2024 3:07 PM EDT [facility] Pistachio Class CLASS 0 12/30/2024 3:07 PM EDT [facility] Comment: Test performed at [facility], [address], [place] [address] Giovana Dallas MD, PhD - Chip Separator Blood Venous blood specimen / Unknown Venipuncture / Unknown 12/25/2024 2:39 PM EDT 12/25/2024 2:39 PM EDT Pamela Hendrix MD LAB BLOOD ORDERABLES F inal Result [facility] [address] [place] [address] * [place] nut, pignoles IgE (12/25/2024 2:39 PM EDT) [place] Nut, [place], IgE <0.10 <0.10 kU/L 12/30/2024 3:07 PM EDT [facility] [place] Nut, [place] Class CLASS 0 12/30/2024 3:07 PM EDT [facility] Comment: Analytical and performance characteristics have been established by [facility]. It has not been cleared or approved by the FDA. The FDA has determined that such clearance or approval is not necessary. This test is used for clinical purposes. It should not be regarded as investigational or research. Test performed at [facility], [address] [place] [address] Giovana Dallas MD, PhD - Chip Separator Blood Venous blood specimen / Unknown Venipuncture / Unknown 12/25/2024 2:39 PM EDT 12/25/2024 2:39 PM EDT Pamela Hendrix MD LAB BLOOD ORDERABLES F inal Result [facility] [address] [place] [address] * Allergen tree, maple leaf sycamore, Singh plane IgE (12/25/2024 2:39 PM EDT) Maple [place] Syc., [place], IgE <0.10 <0.10 kU/L 12/30/2024 3:07 PM EDT [facility] Maple [place] Syc, [place] Class CLASS 0 12/30/2024 3:07 PM EDT [facility] Comment: Test performed at [facility], [address] [place] [address] Giovana Dallas MD, PhD - Chip Separator Blood Venous blood specimen / Unknown Venipuncture / Unknown 12/25/2024 2:39 PM EDT 12/25/2024 2:39 PM EDT us Pamela Hendrix MD LAB BLOOD ORDERABLES F inal Result [facility] [address] [place] [address] * Allergen tree, chestnut IgE (12/25/2024 2:39 PM EDT) [place], IgE <0.10 <0.10 kU/L 12/30/2024 3:07 PM EDT [facility] [place] Class CLASS 0 12/30/2024 3:07 PM EDT [facility] Comment: Analytical and performance characteristics have been established by [facility]. It has not been cleared or approved by the FDA. The FDA has determined that such clearance or approval is not necessary. This test is used for clinical purposes. It should not be regarded as investigational or research. Test performed at [facility], [address] , [place] [address] Giovana Dallas MD, PhD - Chip Separator Blood Venous blood specimen / Unknown Venipuncture / Unknown 12/25/2024 2:39 PM EDT 12/25/2024 2:39 PM EDT us Pamela Hendrix MD LAB BLOOD ORDERABLES F inal Result [facility] [address] [place] [address] * (ABNORMAL) CBC auto differential (12/25/2024 2:39 PM EDT) WBC 6.6 4.8 - 10.8 K/mcL LAB HEMETOLOGY METHOD 12/25/2024 5:40 PM EDT [facility] RBC 5.50(H) 3.80 - 4.80 M/mcL LAB HEMETOLOGY METHOD 12/25/2024 5:40 PM EDT [facility] Hemoglobin 14.1 11.5 - 16.0 g/dL LAB HEMETOLOGY METHOD 12/25/2024 5:40 PM EDT [facility] Hematocrit 43.9 35.0 - 47.0 % LAB HEMETOLOGY METHOD 12/25/2024 5:40 PM EDT [facility] MCV 80.0 79.0 - 98.0 FL LAB HEMETOLOGY METHOD 12/25/2024 5:40 PM EDT [facility] MCH 25.7(L) 27.0 - 32.0 pcg LAB HEMETOLOGY METHOD 12/25/2024 5:40 PM EDT [facility] MCHC 32.1 32.0 - 37.0 g/dL LAB HEMETOLOGY METHOD 12/25/2024 5:40 PM EDT [facility] RDW 14.1 11.0 - 15.0 % LAB HEMETOLOGY METHOD 12/25/2024 5:40 PM EDT [facility] Platelets 322 130 - 400 K/mcL LAB HEMETOLOGY METHOD 12/25/2024 5:40 PM EDT [facility] MPV 9.7 7.0 - 11.0 FL LAB HEMETOLOGY METHOD 12/25/2024 5:40 PM EDT [facility] NRBC 0.0 <1.0 % LAB HEMETOLOGY METHOD 12/25/2024 5:40 PM EDT [facility] NRBC Absolute 0.00 <0.10 K/mcL LAB HEMETOLOGY METHOD 12/25/2024 5:40 PM EDT [facility] Neutrophils Relative 66.8 % LAB [facility]ETOLOGY [facility] Lymphocytes Relative 24.3 % LAB HEMETOLOGY METHOD 12/25/2024 5:40 PM EDT [facility] Monocytes Relative 6.0 % LAB HEMETOLOGY METHOD 12/25/2024 5:40 PM EDT [facility] Eosinophils Relative 2.1 % LAB HEMETOLOGY METHOD 12/25/2024 5:40 PM EDT [facility] Basophils Relative 0.5 % LAB HEMETOLOGY METHOD [facility] Immature Granulocytes Relative 0.3 % LAB HEMETOLOGY METHOD 12/25/2024 5:40 PM EDT [facility] Neutrophils Absolute 4.42 1.50 - 7.00 K/mcL LAB HEMETOLOGY METHOD 12/25/2024 5:40 PM EDT [facility] Lymphocytes Absolute 1.61 1.00 - 5.00 K/mcL LAB HEMETOLOGY METHOD 12/25/2024 5:40 PM EDT [facility] Monocytes Absolute 0.40 0.20 - 1.00 K/mcL LAB HEMETOLOGY METHOD 12/25/2024 5:40 PM EDT [facility] Eosinophils Absolute 0.14 0.00 - 0.50 K/[facility] LAB HEMETOLOGY METHOD 12/25/2024 5:40 PM EDT [facility] Basophils Absolute 0.03 0.00 - 0.20 K/mcL LAB HEMETOLOGY METHOD 12/25/2024 5:40 PM EDT [facility] Immature Granulocytes Absolute 0.02 0.00 - 0.03 K/[facility] LAB HEMETOLOGY METHOD 12/25/2024 5:40 PM EDT [facility] Blood Venous blood specimen / Unknown Venipuncture / Unknown 12/25/2024 2:39 PM EDT 12/25/2024 2:39 PM EDT Pamela Hendrix MD LAB BLOOD ORDERABLES F inal Result [facility] [address] [place] [address], * [place] IgE (12/25/2024 2:39 PM EDT) [place], IgE <0.10 <0.10 kU/L 12/30/2024 3:07 PM EDT [facility] [place] Class CLASS 0 12/30/2024 3:07 PM EDT [facility] Comment: Test performed at [facility], [address], [place] [address] Giovana Dallas MD, PhD - Chip Separator Blood Venous blood specimen / Unknown Venipuncture / Unknown 12/25/2024 2:39 PM EDT 12/25/2024 2:39 PM EDT Pamela Hendrix MD LAB BLOOD ORDERABLES F inal Result Performing Organization Address [facility]/ZIP Co de Phone Number [facility] [address] [place], [place] [phone] * [place], white IgE (12/25/2024 2:39 PM EDT) [place], IgE <0.10 <0.10 kU/L 12/30/2024 3:07 PM EDT [facility] [place] Class CLASS 0 12/30/2024 3:07 PM EDT [facility] Comment: Test performed at [facility], [address] [place] [address] Giovana Dallas MD, PhD - Chip Separator Blood Venous blood specimen / Unknown Venipuncture / Unknown 12/25/2024 2:39 PM EDT 12/25/2024 2:39 PM EDT us Pamela Hendrix MD LAB BLOOD ORDERABLES F inal Result Performing Organization Address [facility] Co de Phone Number [facility] [address] [place], [place] [phone] * [place] IgE (12/25/2024 2:39 PM EDT) [place], IgE <0.10 <0.10 kU/L 12/30/2024 3:07 PM EDT [facility] [place] Nut Class CLASS 0 12/30/2024 3:07 PM EDT [facility] Comment: Test performed at [facility], [address] [place], [place] [phone] Giovana Dallas MD, PhD - Chip Separator Blood Venous blood specimen / Unknown Venipuncture / Unknown 12/25/2024 2:39 PM EDT 12/25/2024 2:39 PM EDT us Pamela Hendrix MD LAB BLOOD ORDERABLES F inal Result [facility] [address] [place] [address] * [place] IgE (12/25/2024 2:39 PM EDT) Pathologist [facility] [place], IgE <0.10 <0.10 kU/L 12/30/2024 3:07 PM EDT [facility] [place] Class CLASS 0 12/30/2024 3:07 PM EDT [facility] Comment: Test performed at [facility], [address], [place] [address] Giovana Dallas MD, PhD - Chip Separator Blood Venous blood specimen / Unknown Venipuncture / Unknown 12/25/2024 2:39 PM EDT 12/25/2024 2:39 PM EDT us Pamela Hendrix MD LAB BLOOD ORDERABLES F inal Result Performing Organization Address City/[facility]/ZIP Co de Phone Number [facility] [address] [place] [address] * Peanut IgE (12/25/2024 2:39 PM EDT) [facility] Peanut, IgE <0.10 <0.10 kU/L 12/30/2024 3:07 PM EDT [facility] Peanut Class CLASS 0 12/30/2024 3:07 PM EDT [facility] Comment: Test performed at [facility], [address] [place] [address] Giovana Dallas MD, PhD - Chip Separator Blood Venous blood specimen / Unknown Venipuncture / Unknown 12/25/2024 2:39 PM EDT 12/25/2024 2:39 PM EDT us Pamela Hendrix MD LAB BLOOD ORDERABLES F inal Result [facility] [address] [place] [address] * Hazelnut, filbert IgE (12/25/2024 2:39 PM EDT) Sherlyn Nut, IgE <0.10 <0.10 kU/L 12/30/2024 3:07 PM EDT [facility] [place] Class CLASS 0 12/30/2024 3:07 PM EDT [facility] Comment: Test performed at [facility], [address], [place] [address] Giovana Dallas MD, PhD - Chip Separator Blood Venous blood specimen / Unknown Venipuncture / Unknown 12/25/2024 2:39 PM EDT 12/25/2024 2:39 PM EDT us Pamela Hendrix MD LAB BLOOD ORDERABLES F inal Result [facility] [address] [place] [address] * (ABNORMAL) Yellow jacket IgE (12/25/2024 2:39 PM EDT) Yellow [place]et, IgE 0.11(H) <0.10 kU/L 12/30/2024 3:07 PM EDT [facility] Yellow Jack[place] Class CLASS 0/1 12/30/2024 3:07 PM EDT [facility] Comment: Test performed at [facility], [address], [place] [address] Giovana Dallsa MD, PhD - Chip Separator Blood Venous blood specimen / Unknown Venipuncture / Unknown 12/25/2024 2:39 PM EDT 12/25/2024 2:39 PM EDT us Pamela Hendrix MD LAB BLOOD ORDERABLES F inal Result [facility] [address] [place] [address] * Wasp, paper IgE (12/25/2024 2:39 PM EDT) Paper Wasp, IgE <0.10 <0.10 kU/L 12/30/2024 3:07 PM EDT [facility] Paper Wasp Class CLASS 0 12/30/2024 3:07 PM EDT [facility] Comment: Test performed at [facility], [address], [place] [address] Giovana Dallas MD, PhD - Chip Separator Blood Venous blood specimen / Unknown Venipuncture / Unknown 12/25/2024 2:39 PM EDT 12/25/2024 2:39 PM EDT us Pamela Hendrix MD LAB BLOOD ORDERABLES F inal Result Performing Organization Address [facility] Co de Phone Number [facility] [address] [place] [address] * Hornet, yellow IgE (12/25/2024 2:39 PM EDT) [facility] Yellow Hornet, IgE <0.10 <0.10 kU/L 12/30/2024 3:07 PM EDT [facility] Yellow Hornet Class CLASS 0 12/30/2024 3:07 PM EDT [facility] Comment: Test performed at [facility], [address] [place] [address] Giovana Dallas MD, PhD - Chip Separator Blood Venous blood specimen / Unknown Venipuncture / Unknown 12/25/2024 2:39 PM EDT 12/25/2024 2:39 PM EDT Pamela Hendrix MD LAB BLOOD ORDERABLES F inal Result [facility] [address] [place] [address] * Allergen, walnut tree IgE (12/25/2024 2:39 PM EDT) Pathologist [facility] [place], IgE <0.10 <0.10 kU/L 12/30/2024 3:07 PM EDT [facility] [place] Tree Class CLASS 0 12/30/2024 3:07 PM EDT [facility] Comment: Test performed at [facility], [address] [place] [address] Giovana Dallas MD, PhD - Chip Separator Blood Venous blood specimen / Unknown Venipuncture / Unknown 12/25/2024 2:39 PM EDT 12/25/2024 2:39 PM EDT us Pamela Hendrix MD LAB BLOOD ORDERABLES F inal Result Performing Organization Address [facility]/ZIP Co de Phone Number [facility] [address] [place] [address] * White oak IgE (12/25/2024 2:39 PM EDT) [facility] [place], IgE <0.10 <0.10 kU/L 12/30/2024 3:07 PM EDT [facility] [place] Class CLASS 0 12/30/2024 3:07 PM EDT [facility] Comment: Test performed at [facility], [address], [place] [address] Giovana Dallas MD, PhD - Chip Separator Blood Venous blood specimen / Unknown Venipuncture / Unknown 12/25/2024 2:39 PM EDT 12/25/2024 2:39 PM EDT us Pamela Hendrix MD LAB BLOOD ORDERABLES F inal Result Performing Organization Address City/[facility]/ZIP Co de Phone Number [facility] [address] [place] [address] * Pecan IgE (12/25/2024 2:39 PM EDT) Pecan Nut, IgE <0.10 <0.10 kU/L 12/30/2024 3:07 PM EDT [facility] Pecan Nut Class CLASS 0 12/30/2024 3:07 PM EDT [facility] Comment: Test performed at [facility], [address] , [place] [address] Giovana Dallas MD, PhD - Chip Separator Blood Venous blood specimen / Unknown Venipuncture / Unknown 12/25/2024 2:39 PM EDT 12/25/2024 2:39 PM EDT us Pamela Hendrix MD LAB BLOOD ORDERABLES F inal Result [facility] [address] [place] [address] * Macadamia nut IgE (12/25/2024 2:39 PM EDT) Macadamia Nut, IgE <0.10 <0.10 kU/L 12/30/2024 3:07 PM EDT [facility] Macadamia Nut Class CLASS 0 12/30 3:07 PM EDT [facility] Comment: Analytical and performance characteristics have been established by [facility]. It has not been cleared or approved by the FDA. The FDA has determined that such clearance or approval is not necessary. This test is used for clinical purposes. It should not be regarded as investigational or research. Test performed at [facility], [address] , [place] [address] Giovana Dallas MD, PhD - Chip Separator Blood Venous blood specimen / Unknown Venipuncture / Unknown 12/25/2024 2:39 PM EDT 12/25/2024 2:39 PM EDT us Pamela Hendrix MD LAB BLOOD ORDERABLES F inal Result [facility] [address] [place] [address] * [place], seed IgE (12/25/2024 2:39 PM EDT) [facility] [place] Seed, IgE <0.10 <0.10 kU/L 12/30/2024 3:07 PM EDT [facility] [place] Seed Class CLASS 0 12/30/2024 3:07 PM EDT [facility] Comment: Test performed at [facility], [address], [place] [address] Giovana Dallas MD, PhD - Chip Separator Blood Venous blood specimen / Unknown Venipuncture / Unknown 12/25/2024 2:39 PM EDT 12/25/2024 2:39 PM EDT Pamela Hendrix MD LAB BLOOD ORDERABLES F inal Result [facility] [address] [place] [address] * (ABNORMAL) Comprehensive metabolic panel (12/25/2024 2:39 PM EDT) [facility] Sodium 138 133 - 145 mmol/L LAB CHEMISTRY METHOD 12/25/2024 6:26 PM EDT [facility] Potassium 4.4 3.5 - 5.5 mmol/L LAB CHEMISTRY METHOD 12/25/2024 6:26 PM EDT [facility] Chloride 105 96 - 110 mmol/L LAB CHEMISTRY METHOD 12/25/2024 6:26 PM EDT [facility] CO2 27 21 - 32 mmol/L LAB CHEMISTRY METHOD 12/25/2024 6:26 PM EDT [facility] Anion Gap 6 3 - 11 LAB CHEMISTRY METHOD 12/25/2024 6:26 PM EDT [facility] Glucose 94 70 - 100 mg/dL LAB CHEMISTRY METHOD 12/25/2024 6:26 PM [facility] BUN 11 5 - 25 mg/dL LAB CHEMISTRY METHOD 12/25/2024 6:26 PM [facility] Creatinine 0.70 0.50 - 1.10 mg/dL LAB CHEMISTRY METHOD 12/25/2024 6:26 PM [facility] eGFR 119 >=60 mL/min/1. 73m2 LAB CHEMISTRY METHOD 12/25/2024 6:26 PM [facility] Comment:Calculation based on the Chronic Kidney Disease Epidemiology Collaboration (CKD-EPI) equation refit without adjustment for race. BUN/Creatinine Ratio 15.7 LAB CHEMISTRY METHOD 12/25/2024 6:26 PM [facility] Calcium 9.1 8.5 - 10.5 mg/dL LAB CHEMISTRY METHOD 12/25/2024 6:26 PM [facility] AST (SGOT) 17 10 - 42 unit/L LAB CHEMISTRY METHOD 12/25/2024 6:26 PM [facility] ALT (SGPT) 24 10 - 60 unit/L LAB CHEMISTRY METHOD 12/25/2024 6:26 PM [facility] Alkaline Phosphatase 127(H) 42 - 121 unit/L LAB CHEMISTRY METHOD 12/25/2024 6:26 PM [facility] Total Protein 7.5 6.0 - 8.0 g/dL LAB CHEMISTRY METHOD 12/25/2024 6:26 PM [facility] Albumin 3.7 3.2 - 5.0 g/dL LAB CHEMISTRY METHOD 12/25/2024 6:26 PM [facility] Total Bilirubin 0.6 0.0 - 1.4 mg/dL LAB CHEMISTRY METHOD 12/25/2024 6:26 PM [facility] Blood Venous blood specimen / Unknown Venipuncture / Unknown 12/25/2024 2:39 PM EDT 12/25/2024 2:39 PM EDT Pamela Hendrix MD LAB BLOOD ORDERABLES F inal Result [facility] [address] [place] [address], [place] [phone] * HPV with reflex genotype (11/05/2024 1:35 PM EDT) Pathologist [facility] [place] HPV Negative Negative LAB MICROBIOLOGY METHOD 11/06/2024 1:47 PM EDT [facility] Brushing Cervix uteri structure / Unknown 11/05/2024 1:35 PM EDT 11/06/2024 6:09 AM EDT Tra Good CNM LAB MOLECULAR DIAGNOSTICS ORD ERABLES Final Result Performing Organization Address City/[facility]/ZIP Co de Phone Number [facility] [address] [place] [address], [place] [phone] * HIV Screening (10/22/2023) HIV Screening Abstracted Historical Provider HEALTH MAINTENANCE Final Result * Hepatitis C Screening (10/22/2023) Pathologist [facility] Hepatitis C Screening Abstracted Historical Provider HEALTH MAINTENANCE Final Result from Last 3 Months or Most Recently Relevant to Health Maintenance Insurance [facility] Care Teams Residential Pest Control Technician Relationship Specialty Start Date End Date Pamela Hendrix MD [address] [place] [phone] PCP - General 06/01/23
--- OUTSIDE RECORDS SUMMARY | 2025-03-06 11:55 | XMS_ITS | Encounter Summary ---
Author Organization [facility] Address [address] [place] [phone] Phone Care Team Providers Care Brine Mixer Operator Name Role Phone Unavailable Primary Care Provider Unavailabl e Encounter Details Date Type Department Care Team (Late st Contact Info) Description 01/13/2018 [facility]counter [facility] [address] [address] Social History Tobacco Use Types Packs/Day Years [...]
--- OUTSIDE RECORDS SUMMARY | 2025-03-06 11:55 | XMS_ITS | Clinical Summary ---
Author Organization 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 Pain, dental [...] Sign Reading Time Taken Comments Blood Pressure 118/72 11/26/2024 10:01 AM EDT Pulse 68 05/30/2024 1:24 PM EDT Temperature - - Respiratory Rate - - Oxygen Saturation - - Inhaled Oxygen Concentration - - Weight - - Height - - Body Mass Index - - Plan of Treatment Health Maintenance Due Date Last Done Comments Depression Screening 1993 HIV Screening 1993 Lipid Panel 1993 SDOH Screening 1993 Disability Screening 1993 Alcohol/Substance Use Screening 2005 Family Planning (PISQ) 2008 Hepatitis C Screening 12/08/2011 Pap Smear 2014 Pneumococcal Vaccine: Pediatrics (0 to 5 Years) and At-Risk Patients (6 to 49) Years (2 of 2 - PCV) 04/15/2016 04/15/2015 Cervical Cancer Screening 12/08/2023 HPV/Cotest 12/08/2023 COVID-19 Vaccine ( season) 2024 01/28/2021, 12/31/2020 Dental X-Ray: Bitewings 03/27/2025 03/26/2024, 02/06 Influenza Vaccine (#1) 2025 9, 08/29/2013, 05/22/2008, Additional history exists Dental Oral Exam 05/29/2025 11/26/2024, , 11/05/2019 Dental Prophylaxis 05/29/2025 11/26/2024, 02/07/2024 Tobacco Screening 11/26/2025 11/26/2024 Dental X-Ray: Full Mouth 11/28/2027 025, 03/26/2024, 02/07/2024, Additional history exists DTaP/Tdap/Td Vaccines (8 - Td or Tdap) [...] Procedure Name Priority Date/Time Associated Diagnosis Comments PROPHYLAXIS - ADULT Routine 11/26/2024 1 0:00 AM EDT PANORAMIC RADIOGRAPHIC IMAGE Routine 11/26/2024 10:00 AM EDT PERIODIC ORAL EVALUATION - ESTABLISHED PATIENT Routine 11/26/2024 10:00 AM EDT INTRAORAL - COMPLETE SERIES OF RADIOGRAPHIC IMAGES Routine 03/26/2024 9:30 AM EDT from Last 3 Months or Most Recently Relevant to Health Maintenance [facility] - [facility] MEDICAID DDS ADULT
== END 2025-03-06 11:24 | disposition home or self-care (01) ==
LOC: HO.SH 11:23
PROVIDERS: Visit Provider Internal Medicine
DX: Z01.118 Encounter for examination of ears and hearing with other abnormal findings (principal); H90.3 Sensorineural hearing loss, bilateral
CPT/HCPCS: V5266

== ENCOUNTER 2025-03-30 15:30 | Outpatient (REF) | payer OTHER, SELFPAY ==
--- OUTSIDE RECORDS SUMMARY | 2025-03-30 15:33 | XMS_ITS ---
Author Name [facility] Organization Unknown Care Team Organization Name Specialty Phone Email Start Date End Da boo [facility] HENNY NUÑEZ Primary Care 07/04/2022 04/14/20 24
--- OUTSIDE RECORDS SUMMARY | 2025-03-30 15:33 | XMS_ITS | Encounter Summary ---
Author Organization [facility] Address [address] [place] [phone] Phone Care Team Providers Care Registered Respiratory Technician Name Role Phone Unavailable Primary Care Provider Unavailabl e Encounter Details Date Type Department Care Team (Late st Contact Info) Description 01/13/2018 Conversion [facility]counter [facility] [address] [address] Social History Tobacco Use Types Packs/Day Years [...]
--- OUTSIDE RECORDS SUMMARY | 2025-03-30 15:33 | XMS_ITS | Clinical Summary ---
Author Organization [facility] [address] [facility] l[facility] Address [address] [place] [address] Phone Care Team Providers Care Cigarette Seller Name Role Phone Pamela Hendrix MD Primary Care Provider Allergies Active Allergy Reactions Criticality Noted Date Comments Bee Venom Protein (Honey Bee) Unknown 2023 [place] Extract Hives 10/17/2019 Sulfamethoxazole Hives 10/17/2019 Sulfamethoxazole-Trimethoprim [...] Department Care Team Description 02/12/2025 Telephone Adult Medicine - [place] [address] [place] [phone] Elizabeth Kim MA Request For Order(s) ([facility]) 12/29/2024 8:00 AM EDT - 12/29/2024 11:59 PM EDT Hospital Encounter Ultrasound - [place] [address] [place] [phone] Pain of upper abdomen Discharge Disposition: Home or Self Care from Last 3 Months Immunizations Name Administration Dates Next Due DTaP (Infanrix) 6wks to less than 7yo ,05/28/1995,11/13/1994,05/23,02/06/1994 [id number] (Pentacel) 2mo to less than 5yo 05/28/1995,05/23/1994,02/06/1994 [...] PM EST Office Visit Adult Medicine - [place] [address] [place] [phone] Obinna Blackman PA [address] [place] [address] Health Maintenance Due Date Last Done Comments Pneumococcal Vaccine: Pediatrics (0 to 5 Years) and At-Risk Patients (6 to 49 Years) (2 of 2 - PCV) 04/15/2016 04/15/2015 Social Influencers of Health Screening 09/30/2023 COVID-19 Vaccine ( season) 2024 01/28/2021, 12/31/2020 Depression Screening 08/27/2024 Influenza Vaccine (#1) 2025 9, 08/29/2013, 05/22/2008 DTaP,Tdap,and Td Vaccines (8 - Td or [...] Diagnosis Comments US ABDOMEN COMPLETE Routine 12/29/2024 8:54 AM EDT Pain of upper abdomen LIPID PANEL WITH REFLEX TO DIRECT LDL [...] Signed Date: 12/29/2024 09:39 ET Workstation ID: [id number] Transcribed By: Self Edit Transcribed Date: 12/29/2024 [...] Signed Date: 12/29/2024 09:39 ET Workstation ID: [id number] Transcribed By: Self Edit Transcribed Date: 12/29/2024 09:23 ET Pamela Hendrix MD IM US PROCEDURES Page l Result * (ABNORMAL) Lipid panel with reflex to direct LDL (12/25/2024 2:39 PM EDT) Cholesterol 228(H) 0 - 200 mg/dL LAB CHEMISTRY METHOD 12/25/2024 6:26 PM EDT [facility] Triglycerides 129 0 - 150 mg/dL LAB CHEMISTRY METHOD 12/25/2024 6:26 PM EDT [facility] HDL 43 >=40 mg/dL LAB CHEMISTRY METHOD 12/25/2024 6:26 PM EDT [facility] LDL Calculated 159(H) 0 - 100 mg/dL LAB CHEMISTRY METHOD 12/25/2024 6:26 PM EDT [facility] VLDL Cholesterol Trino 25.8 mg/dL LAB CHEMISTRY METHOD 12/25/2024 6:26 PM EDT [facility] Non HDL Chol. (LDL+VLDL) 185(H) <145 mg/dL LAB CHEMISTRY METHOD 12/25/2024 6:26 PM EDT [facility] Chol/HDL Ratio 5.3(H) 0.0 - 4.4 LAB CHEMISTRY METHOD 12/25/2024 6:26 PM EDT [facility] Blood Venous blood specimen / Unknown Venipuncture / Unknown 12/25/2024 2:39 PM EDT 12/25/2024 2:39 PM EDT Pamela Hendrix MD LAB BLOOD ORDERABLES F inal Result [facility] [address] [place] [address], [place] [phone] * HPV with reflex genotype (11/05/2024 1:35 PM EDT) [facility] HPV Negative Negative LAB MICROBIOLOGY METHOD 11/06/2024 1:47 PM EDT [facility] Brushing Cervix uteri structure / Unknown 11/05/2024 1:35 PM EDT 11/06/2024 6:09 AM EDT Tra [facility]OME[facility] LAB MOLECULAR DIAGNOSTICS ORD ERABLES Final Result [facility] ([facility]) [facility] [address] [place] [address], * HIV Screening (10/22/2023) Pathologist [facility] HIV Screening Abstracted Historical Provider HEALTH MAINTENANCE Final Result * Hepatitis C Screening (10/22/2023) Pathologist [facility] Hepatitis C Screening Abstracted Historical Provider HEALTH MAINTENANCE Final Result from Last 3 Months or Most Recently Relevant to Health Maintenance Insurance [facility] Care Teams Cigarette Seller Relationship Specialty Start Date End Date Pamela Hendrix MD [address] [place] [phone] PCP - General 06/01/23
--- OUTSIDE RECORDS SUMMARY | 2025-03-30 15:33 | XMS_ITS | Clinical Summary ---
Author Organization [facility] Address [address] [place] [address] 7 [place] [address] Care Team Providers Care Freelance Court Stenographer Name Role Phone Unavailable Primary Care Provider Unavailabl e Allergies Active Allergy Reactions Criticality Noted Date Comments Bee Venom Unknown 03/26/2024 [place] Extract Hives 10/17/2019 Sulfamethoxazole Hives 10/17/2019 Medications [...] Most Recently Relevant to Health Maintenance Insurance [facility] STAND ADULT DENTAL - [facility] MEDICAID DDS ADULT
--- NOTE | 2025-03-30 16:09 | MHC.AU.HA3 ---
Hearing Instrument Follow-Up- Binaural Date of Visit: 03/30/25 Right Ear: Onel, Model, Color, Serial Number: Nicholas Espinoza P 70-13T Britany Rcihardson Serial #[id number] Director Of Hotel Repair Warranty: 01/07/2026 Director Of Hotel Loss and Damage Warranty: 01/07/2026 [facility] Service Plan: 10/20/2023 Battery Size: 13 Residential Program Director/Slim Tube: 1 P Earmold/Dome/CShell/SlimTip:Phonak Canal Lock C-Shell #[id number] Remake warranty 01/06/2023 Type of Wax Guard: Cerustop Dispensed By: [facility] Date of Fittin06/11/2017 Left Ear: Onel, Model, Color, Serial Number: Nicholas Moraleso P 70-13T Britany Richardson Serial #[id number] Director Of Hotel Repair Warranty: 01/07/2026 Director Of Hotel Loss and Damage Warranty: 01/07/2026 [facility] Service Plan: 10/20/2023 Battery Size: 13 Residential Program Director/Slim Tube: 1 P Earmold/Dome/CShell/SlimTip: Phonak Canal Lock C-Shell #[id number] Remake warranty 01/06/2023 Type of Wax Guard: Cerustop Dispensed By: [facility] Date of Fittin06/11/2017 Follow-Up Summary: Both aids dropped off complaint of wax guard ring coming out. Cleaned aids (2), cleaned earmolds (2), replaced wax guards (2) for 9949 6 units. Right c-shell not holding wax guard gasket. Left holding fine. Listening check positive for both aids. Attempted gluing in replacement gasket right but would not hold. Ordering new right c-shell. Sending aids to front for supervisor opening and picking. Wear right aid for now with no wax guard. Will call when new c-shell is in. Needs appt. for EMF. Recommendations: Recommendations: Patient will be contacted when materials have arrived. Diagnosis Code(s): Primary Diagnosis: H90.3 Bilateral Sensorineural Hearing Loss Signature: Provider: Catina Gallardo, CCC-A
== END 2025-03-30 15:31 | disposition home or self-care (01) ==
LOC: HO.HAP 15:30
PROVIDERS: Visit Provider Internal Medicine
DX: Z13.89 Encounter for screening for other disorder (principal)

== ENCOUNTER 2025-03-31 10:52 | Outpatient (REF) | payer OTHER, SELFPAY ==
--- OUTSIDE RECORDS SUMMARY | 2025-03-31 11:38 | XMS_ITS | Encounter Summary ---
Author Organization [facility] Address [address] [place] [phone] Phone Care Team Providers Care It Systems Analyst Name Role Phone Unavailable Primary Care Provider Unavailabl e Encounter Details Date Type Department Care Team (Late st Contact Info) Description 01/13/2018 Conversion Encounter [facility] [address] [address] Social History Tobacco Use Types Packs/Day Years [...]
--- OUTSIDE RECORDS SUMMARY | 2025-03-31 11:38 | XMS_ITS | Clinical Summary ---
Author Organization [facility] Address [address] [place] [address] [address] [place] [address] Care Team Providers Care Supervisor Brake Repair Name Role Phone Unavailable Primary Care Provider Unavailabl e Allergies Active Allergy Reactions Criticality Noted Date Comments Bee Venom Unknown 03/26/2024 [place] Extract Hives 10/17/2019 Sulfamethoxazole Hives 10/17/2019 Medications [...] [facility] MEDICAID DDS ADULT
--- OUTSIDE RECORDS SUMMARY | 2025-03-31 11:38 | XMS_ITS | Clinical Summary ---
Author Organization [facility] [address] [facility] lding Address [address] [place] [address] Phone Care Team Providers Care Rn Spine Name Role Phone Pamela Henrdix MD Primary Care Provider Allergies Active Allergy Reactions Criticality Noted Date Comments Bee Venom Protein (Honey Bee) Unknown 2023 [place] Extract Hives 10/17/2019 Sulfamethoxazole Hives 10/17/2019 Sulfamethoxazole-Trimethoprim [...] Team Description 02/12/2025 Telephone Adult Medicine - [place] [address] [place] [phone] Elizabeth Kim MA Request For Order(s) ([facility]) 12/29/2024 8:00 AM EDT - 12/29/2024 11:59 PM EDT Hospital Encounter Ultrasound - [place] [address] [place] [phone] Pain of upper abdomen Discharge Disposition: Home or Self Care from Last 3 Months Immunizations Name Administration Dates Next Due DTaP (Infanrix) 6wks to less than 7yo ,05/28/1995,11/13/1994,05/23,02/06/1994 [id number] (Pentacel) 2mo to less than 5yo 05/28/1995,05/23/1994,02/06/1994 [...] PM EST Office Visit Adult Medicine - [place] [address] [place] [address] Obinna Blackman PA [address] [place] [address] Health Maintenance Due Date Last Done Comments [...] Signed Date: 12/29/2024 09:39 ET Workstation ID: [id number] Transcribed By: Self Edit Transcribed Date: 12/29/2024 [...] Signed Date: 12/29/2024 09:39 ET Workstation ID: [id number] Transcribed By: Self Edit Transcribed Date: 12/29/2024 09:23 ET Pamela Hendrix MD IM US PROCEDURES Page l Result * (ABNORMAL) Lipid panel with reflex to direct LDL (12/25/2024 2:39 PM EDT) Cholesterol 228(H) 0 - 200 mg/dL LAB CHEMISTRY METHOD 12/25/2024 6:26 PM EDT [facility] Triglycerides 129 0 - 150 mg/dL LAB CHEMISTRY METHOD 12/25/2024 6:26 PM EDT [facility] HDL 43 >=40 mg/dL LAB CHEMISTRY METHOD 12/25/2024 6:26 PM EDT [facility] LDL Calculated 159(H) 0 - 100 mg/dL LAB CHEMISTRY METHOD 12/25/2024 6:26 PM EDT [facility] VLDL Cholesterol Trino 25.8 mg/dL LAB CHEMISTRY METHOD 12/25/2024 6:26 PM EDT [facility] Non HDL Chol. (LDL+VLDL) 185(H) <145 mg/dL LAB CHEMISTRY METHOD 12/25/2024 6:26 PM EDT [facility] Chol/HDL Ratio 5.3(H) 0.0 - 4.4 LAB CHEMISTRY METHOD 12/25/2024 6:26 PM EDT [facility] Blood Venous blood specimen / Unknown Venipuncture / Unknown 12/25/2024 2:39 PM EDT 12/25/2024 2:39 PM EDT Pamela Hendrix MD LAB BLOOD ORDERABLES F inal Result [facility] [address] [place] [address], [place] [phone] * HPV with reflex genotype (11/05/2024 1:35 PM EDT) [facility] HPV Negative Negative LAB MICROBIOLOGY METHOD 11/06/2024 1:47 PM EDT [facility] Brushing Cervix uteri structure / Unknown 11/05/2024 1:35 PM EDT 11/06/2024 6:09 AM EDT Tra [facility] LAB MOLECULAR DIAGNOSTICS ORD ERABLES Final Result [facility] [address] [place] [address], * HIV Screening (10/22/2023) Pathologist [facility] HIV Screening Abstracted Historical Provider HEALTH MAINTENANCE Final Result * Hepatitis C Screening (10/22/2023) Pathologist [facility] Hepatitis C Screening Abstracted Historical Provider HEALTH MAINTENANCE Final Result from Last 3 Months or Most Recently Relevant to Health Maintenance Insurance [facility] Care Teams Rn Spine Relationship Specialty Start Date End Date Pamela Hendrix MD [address] [place] [phone] PCP - General 06/01/23
== END 2025-03-31 10:53 | disposition home or self-care (01) ==
LOC: HO.HAP 10:52
PROVIDERS: Visit Provider Internal Medicine
DX: H90.3 Sensorineural hearing loss, bilateral (principal)
CPT/HCPCS: 92593; 99499

== ENCOUNTER 2025-04-29 15:55 | Outpatient (REF) | payer OTHER, SELFPAY ==
--- NOTE | 2025-04-29 16:33 | MHC.AU.HA3 ---
Hearing Instrument Follow-Up- Binaural Date of Visit: 04/29/25 Right Ear: Onel, Model, Color, Serial Number: Nicholas Espinoza P 70-13T Britany Richardson Serial #[id number] Grinder Lap Repair Warranty: 01/07/2026 Grinder Lap Loss and Damage Warranty: 01/07/2026 [facility] Service Plan: 10/20/2023 Battery Size: 13 Head Mixer/Slim Tube: 1 P Earmold/Dome/CShell/SlimTip:Phonak Canal Lock C-Shell #[id number] Remake warranty 08/03/2025 Type of Wax Guard: Cerustop Dispensed By: [facility] Date of Fittin06/11/2017 Left Ear: Onel, , Color, Serial Number: Nicholas Moraleso P 70-13T Britany Richardson Serial #[id number] Grinder Lap Repair Warranty: 01/07/2026 Grinder Lap Loss and Damage Warranty: 01/07/2026 [facility] Service Plan: 10/20/2023 Battery Size: 13 Head Mixer/Slim Tube: 1 P Earmold/Dome/CShell/SlimTip: Phonak Canal Lock C-Shell #[id number] Remake warranty 01/06/2023 Type of Wax Guard: Cerustop Dispensed By: [facility] Date of Fittin06/11/2017 Follow-Up Summary: Chacho came to orange picking supervisor her new right c-shell. She was wearing her back up hearing aids as she was not comfortable using the hearing aid without a wax guard in it. Placed the new c-shell on the right aid. The new c-shell came with a removal string which Chacho did not like, cut that off. She initially thought the hearing aids sounded a bit different. Advised this is probably due to her wearing her back ups for about a month and that no changes have been made to her hearing aids or hearing aid settings. Offered Chacho the old right c-shell to hold on to incase she needs a back up, she did not want it, reports she would not want to use it without a wax guard. Disposed of the old right c-shell. Recommendations: Recommendations: Hearing instrument maintenance in 6 months, or sooner if needed. Diagnosis Code(s): Primary Diagnosis: H90.3 Bilateral Sensorineural Hearing Loss Signature: Provider: Catina Gallardo, [facility]
--- OUTSIDE RECORDS SUMMARY | 2025-04-29 17:45 | XMS_ITS | Clinical Summary ---
Author Organization [facility] [address] [facility] lding Address [address] [place] [address] Phone Care Team Providers Care Qa Reviewer Name Role Phone Pamela Hendrix MD Primary Care Provider Allergies Active Allergy Reactions Criticality Noted Date Comments Bee Venom Protein (Honey Bee) Unknown 2023 [place] Extract Hives 10/17/2019 Sulfamethoxazole Hives 10/17/2019 Sulfamethoxazole-Trimethoprim [...] Team Description 02/12/2025 Telephone Adult Medicine - [address] [phone] Elizabeth Kim MA from Last 3 Months Immunizations Name Administration Dates Next Due DTaP (Infanrix) 6wks to less than 7yo ,05/28/1995,11/13/1994,05/23,02/06/1994 [id number] (Pentacel) 2mo to less than 5yo 05/28/1995,05/23/1994,02/06/1994 [...] 1:15 PM EST Office Visit Adult Medicine [place] [address] [place] [address] Obinna Blackman PA [address] [place] [phone] Health Maintenance Due Date Last Done Comments Pneumococcal Vaccine: Pediatrics (0 to 5 Years) and At-Risk Patients (6 to 49 Years) (2 of 2 - PCV) 04/15/2016 04/15/2015 Social Influencers of Health Screening 09/30/2023 Depression Screening 08/27/2024 COVID-19 Vaccine ( season) 2025 01/28/2021, 12/31/2020 Influenza Vaccine (#1) 2025 9, [...] Procedure Name Priority Date/Time Associated Diagnosis Comments LIPID PANEL WITH REFLEX TO DIRECT LDL [...] Recently Relevant to Health Maintenance Results * (ABNORMAL) Lipid panel with reflex to direct LDL (12/25/2024 2:39 PM EDT) Cholesterol 228(H) 0 - 200 mg/dL LAB CHEMISTRY METHOD 12/25/2024 6:26 PM [facility] Triglycerides 129 0 - 150 mg/dL LAB CHEMISTRY METHOD 12/25/2024 6:26 PM [facility] HDL 43 >=40 mg/dL LAB CHEMISTRY METHOD 12/25/2024 6:26 PM [facility] LDL Calculated 159(H) 0 - 100 mg/dL LAB CHEMISTRY METHOD 12/25/2024 6:26 PM [facility] VLDL Cholesterol Trino 25.8 mg/dL LAB CHEMISTRY METHOD 12/25/2024 6:26 PM [facility] Non HDL Chol. (LDL+VLDL) 185(H) <145 mg/dL LAB CHEMISTRY METHOD 12/25/2024 6:26 PM [facility] Chol/HDL Ratio 5.3(H) 0.0 - 4.4 LAB CHEMISTRY METHOD 12/25/2024 6:26 PM [facility] Blood Venous blood specimen / Unknown Venipuncture / Unknown 12/25/2024 2:39 PM EDT 12/25/2024 2:39 PM EDT Pamela Hendrix MD LAB BLOOD ORDERABLES F inal Result [facility] [address] [place] [address], [place] [phone] * HPV with reflex genotype (11/05/2024 1:35 PM EDT) Pathologist [facility] HPV Negative Negative LAB MICROBIOLOGY METHOD 11/06/2024 1:47 PM EDT [facility] Brushing Cervix uteri structure / Unknown 11/05/2024 1:35 PM EDT 11/06/2024 6:09 AM EDT Tra Good CNM LAB MOLECULAR DIAGNOSTICS ORD ERABLES Final Result Performing Organization Address City/[facility]/ZIP Co de Phone Number [facility] [address] [place] [address], [place] [phone] * HIV Screening (10/22/2023) HIV Screening Abstracted Historical Provider HEALTH MAINTENANCE Final Result * Hepatitis C Screening (10/22/2023) Hepatitis C Screening Abstracted Historical Provider HEALTH MAINTENANCE Final Result from Last 3 Months or Most Recently Relevant to Health Maintenance Insurance [facility] HEALTH PLAN Care Teams Qa Reviewer Relationship Specialty Start Date End Date Pamela Hendrix MD [address] [place] [phone] PCP - General 06/01/23
--- OUTSIDE RECORDS SUMMARY | 2025-04-29 17:45 | XMS_ITS | Clinical Summary ---
Author Organization [facility] Address [address] [place] [address] Phone Care Team Providers Care Flexographic Printing Machinist Name Role Phone Unavailable Primary Care Provider [...] healthy Father's Sister Alive healthy Maternal Grandfather [place] at 6 3 yrs Maternal Grandmother DM [...] AM EDT Pulse - - Temperature 36.8 C (98.2 F) 01/06/2010 12:00 AM EDT Respiratory Rate - - Oxygen [...] 02/05/2017 02/05/2007, 04/05/1999, 05/28/1995, Additional history exists COVID-19 Vaccine ( season) 2024 Influenza Vaccines (#1) 2025 05/22/2008 HIB Vaccines Completed 05/28/1995, 04/28, 02/06/1994 Hepatitis [...]
--- OUTSIDE RECORDS SUMMARY | 2025-04-29 17:45 | XMS_ITS | Encounter Summary ---
Author Organization [facility] Address [address] [place] [address] Phone Care Team Providers Care Gaming Surveillance Observer Name Role Phone Unavailable Primary Care Provider Unavailabl e Encounter Details Date Type Department Care Team (Late st Contact Info) Description 01/13/2018 Conversion [facility]counter [facility] [address] [address] Social History Tobacco Use Types Packs/Day Years [...]
--- OUTSIDE RECORDS SUMMARY | 2025-04-29 17:45 | XMS_ITS | Clinical Summary ---
Author Organization [employer] [facility] Address [address] [place] [address] 7 [place] [address] Care Team Providers Care Theater Set Production Designer Name Role Phone Unavailable Primary Care Provider Unavailabl e Allergies Active Allergy Reactions Criticality Noted Date Comments Bee Venom Unknown 03/26/2024 [place] Extract Hives 10/17/2019 Sulfamethoxazole Hives 10/17/2019 Medications [...] Most Recently Relevant to Health Maintenance Insurance [facility] STAND ADULT DENTAL - [facility] MEDICAID DDS ADULT
== END 2025-04-29 15:56 | disposition home or self-care (01) ==
LOC: HO.HAP 15:55
PROVIDERS: Visit Provider Internal Medicine
DX: Z46.1 Encounter for fitting and adjustment of hearing aid (principal); H90.3 Sensorineural hearing loss, bilateral
CPT/HCPCS: V5264; V5266

== ENCOUNTER 2025-07-27 13:32 | Outpatient (REF) | payer OTHER, SELFPAY ==
--- OUTSIDE RECORDS SUMMARY | 2025-07-27 17:05 | XMS_ITS | Encounter Summary ---
Author Organization [facility] Address [address] [place] [address] Phone Care Team Providers Care Key Account Director Name Role Phone Unavailable Primary Care Provider Unavailabl e Encounter Details Date Type Department Care Team (Late st Contact Info) Description 01/13/2018 Conversion [facility]counter [facility] [address] [address] Social History Tobacco Use Types Packs/Day Years [...]
--- OUTSIDE RECORDS SUMMARY | 2025-07-27 17:05 | XMS_ITS | Clinical Summary ---
Author Organization [employer] [facility] Address [address] [place] [address] 7 [place] [address] Care Team Providers Care Java J2Ee Architect Name Role Phone Unavailable Primary Care Provider Unavailabl e Allergies Active Allergy Reactions Criticality Noted Date Comments Bee Venom Unknown 03/26/2024 [place] Extract Hives 10/17/2019 Sulfamethoxazole Hives 10/17/2019 Medications [...] 04/15/2015 Cervical Cancer Screening 12/08/2023 HPV/Cotest 12/08/2023 Dental X-Ray: [facility] 03/27/2025 03/26/2024, 02/06 COVID-19 Vaccine ( season) 2025 01/28/2021, 12/31/2020 Influenza Vaccine (#1) 2025 9, 08/29/2013, 05/22/2008, [...] Most Recently Relevant to Health Maintenance Insurance [facility] MED[facility] STAND ADULT DENTAL - [facility] MEDICAID DDS ADULT
--- OUTSIDE RECORDS SUMMARY | 2025-07-27 17:05 | XMS_ITS | Clinical Summary ---
Author Organization [facility] Address [address] [place] [address] Phone Care Team Providers Care Performance Solutions Specialist Name Role Phone Unavailable Primary Care Provider [...] healthy Father's Sister Alive healthy Maternal Grandfather [place] at 6 3 yrs Maternal Grandmother DM [...] 05/28/1995, Additional history exists Influenza Vaccines (#1) 2025 05/22/2008 COVID-19 Vaccine ( - season) 2025 HIB Vaccines Completed 05/28/1995, 04/28, 02/06/1994 Hepatitis [...]
== END 2025-07-27 13:33 | disposition home or self-care (01) ==
LOC: HO.HAP 13:32
PROVIDERS: Visit Provider Internal Medicine
DX: H90.3 Sensorineural hearing loss, bilateral (principal)
CPT/HCPCS: V5266

== ENCOUNTER 2025-08-18 13:12 | Outpatient (REF) | payer OTHER, SELFPAY ==
--- OUTSIDE RECORDS SUMMARY | 2025-08-18 14:21 | XMS_ITS | Encounter Summary ---
Author Organization [facility] Address [address] [place] [address] Phone Care Team Providers Care Stringing Machine Operator Name Role Phone Unavailable Primary Care Provider Unavailabl e Encounter Details Date Type Department Care Team (Late st Contact Info) Description 01/13/2018 Conversion Encounter [facility] [address] [address] Social History Tobacco Use Types Packs/Day Years [...]
--- OUTSIDE RECORDS SUMMARY | 2025-08-18 14:21 | XMS_ITS | Clinical Summary ---
Author Organization [employer] [facility] Address [address] [place] [address] 7 [place] [address] Care Team Providers Care Physics Instructor Name Role Phone Unavailable Primary Care Provider Unavailabl e Allergies Active Allergy Reactions Criticality Noted Date Comments Bee Venom Unknown 03/26/2024 [place] Extract Hives 10/17/2019 Sulfamethoxazole Hives 10/17/2019 Medications [...] Most Recently Relevant to Health Maintenance [facility] ST[facility] - [facility] MEDICAID DDS ADULT
--- OUTSIDE RECORDS SUMMARY | 2025-08-18 14:21 | XMS_ITS | Clinical Summary ---
Author Organization [facility] [address] [facility] lding Address [address] [place] [address] Phone Care Team Providers Care Barge Captain Name Role Phone Pamela Hendrix MD Primary Care Provider Allergies Active Allergy Reactions Criticality Noted Date Comments Bee Venom Protein (Honey Bee) Unknown 2023 [place] Extract Hives 10/17/2019 Sulfamethoxazole Hives 10/17/2019 Sulfamethoxazole-Trimethoprim [...] asthma 08/29/2013 Retinal detachment 08/29/2013 Scoliosis 08/29/2013 Immunizations Immunization Administration Dates Next Due DTaP (Infanrix) 6wks to less than 7yo ,05/28/1995,11/13/1994,05/23,02/06/1994 [id number] (Pentacel) 2mo to less than 5yo 05/28/1995,05/23/1994,02/06/1994 [...] Care Team (Late st Contact Info) Description 08/26/2025 1:15 PM EST Office Visit Adult Medicine - [address] [phone] Obinna Blackman PA [address] [place] [address] Health Maintenance Due Date Last Done Comments Pneumococcal Vaccine: Pediatrics (0 to 5 Years) and At-Risk Patients (6 to 49 Years) (2 of 2 - PCV) 04/15/2016 04/15/2015 Social Influencers of Health Screening 09/30/2023 Depression Screening 08/27/2024 COVID-19 Vaccine (3 - season) 2025 01/28/2021, 12/31/2020 Influenza Vaccine (#1) 2025 9, 08/29/2013, 05/22/2008 DTaP,Tdap,and Td Vaccines (8 - Td or Tdap) 10/22/2028 10/22/2018, 02/05/2007, 04/05/1999, Additional history exists Cervical Cancer Screening: HPV 11/05/2029 11/05/2024, 05/11/2023 Cholesterol Screening (Lipid Panel) 12/25/2029 12/25/2024, 10/22/2023, 10/22/2023 RSV Immunization Adult Patients (1 - 1-dose 75+ series) 2068 HIB [...] LAB CHEMISTRY METHOD 12/25/2024 6:[address] [facility] Triglycerides 129 0 - 150 mg/dL LAB CHEMISTRY METHOD 12/25/2024 6:[address] [facility] HDL 43 >=40 mg/dL LAB CHEMISTRY METHOD 12/25/2024 6:[address] [facility] LDL Calculated 159(H) 0 - 100 mg/dL LAB CHEMISTRY METHOD 12/25/2024 6:[address] [facility] VLDL Cholesterol Trino 25.8 mg/dL LAB CHEMISTRY METHOD 12/25/2024 6:[address] [facility] Non HDL Chol. (LDL+VLDL) 185(H) <145 mg/dL LAB CHEMISTRY METHOD 12/25/2024 6:[address] [facility] Chol/HDL Ratio 5.3(H) 0.0 - 4.4 LAB CHEMISTRY METHOD 12/25/2024 6:[address] [facility] Blood Venous blood specimen / Unknown Venipuncture / Unknown 12/25/2024 2:39 PM EDT 12/25/2024 2:39 PM EDT us Pamela Hendrix MD LAB BLOOD ORDERABLES F inal Result Performing Organization Address City/[facility]/ZIP Co de Phone Number [facility] [address] [place] [address], [place] [phone] * HPV with reflex genotype (11/05/2024 1:35 PM EDT) [facility] HPV Negative Negative LAB MICROBIOLOGY METHOD 11/06/2024 1:[address] [facility] Brushing Cervix uteri structure / Unknown 11/05/2024 1:35 PM EDT 11/06/2024 6:09 AM EDT Tra [facility] LAB MOLECULAR DIAGNOSTICS ORD ERABLES Final Result Performing Organization Address [facility]/ZIP Co de Phone Number [facility] [address] [place] [address], [place] [phone] * HIV Screening (10/22/2023) Pathologist [facility] HIV Screening Abstracted Historical Provider HEALTH MAINTENANCE Final Result * Hepatitis C Screening (10/22/2023) [facility] Hepatitis C Screening Abstracted Historical Provider HEALTH MAINTENANCE Final Result from Last 3 Months or Most Recently Relevant to Health Maintenance Insurance [facility] HEALTH PLAN Care Teams Barge Captain Relationship Specialty Start Date End Date Pamela Hendrix MD [address] [place] [phone] PCP - General 06/01/23
--- OUTSIDE RECORDS SUMMARY | 2025-08-18 14:21 | XMS_ITS | Clinical Summary ---
Author Organization [facility] Address [address] [place] [address] Phone Care Team Providers Care Senior Field Engineer Name Role Phone Unavailable Primary Care Provider [...] healthy Father's Sister Alive healthy Maternal Grandfather [place] at 6 3 yrs Maternal Grandmother DM [...]
== END 2025-08-18 13:13 | disposition home or self-care (01) ==
LOC: HO.HAP 13:12
PROVIDERS: Visit Provider Internal Medicine
DX: H90.3 Sensorineural hearing loss, bilateral (principal)
CPT/HCPCS: 92700; V5264